=== PATIENT | female | born 1995 | race Caucasian/White ===

== ENCOUNTER → 2016-08-29 | Outpatient (CLI) | payer OTHER ==
[~2016-08-29] MED LIST: ACET-1256 PO; ATV/1 PO; CHOL200010 PO; CPXI SQ; ERGO500037 PO; ONDA4TAB46 PO; PRENTAB26 PO
[2016-09-01 11:06] LABS: CHLAMYDIA TRACH RNA*** NOT DETECTED (NOT DETECTED); GC (NEIS GONORRHOEAE)RNA** NOT DETECTED (NOT DETECTED); HERPES SIMPLEX CULT SOURCE GENITAL-VAGINAL; HERPES SIMPLEX VIRUS CULT NOT ISOLATED (NOT ISOLATED)
== END | disposition home or self-care (01) ==
LOC: C.LABSPEC 17:45
PROVIDERS: ATTEND Physician Assistant
DX: L29.8 Other pruritus (principal); N89.8 Other specified noninflammatory disorders of vagina; Z11.3 Encounter for screening for infections with a predominantly sexual mode of transmission; N94.9 Unspecified condition associated with female genital organs and menstrual cycle

== ENCOUNTER 2016-10-10 02:37 | Emergency (ER) | payer OTHER ==
[~2016-10-10] VITALS: Ht 160 cm; Wt 102.5 kg
[~2016-10-10 02:37] MED LIST changes: -ATV/1 PO; -CHOL200010 PO; -CPXI SQ; -ERGO500037 PO; -ONDA4TAB46 PO; -PRENTAB26 PO
[2016-10-10 02:40] VITALS: TEMP 36.6; Ht 160 cm; Wt 102.5 kg
[2016-10-10] MEDS ORDERED: SODIUM CHLORIDE 0.9% 1000ML 1,000 ML IV ONE (03:15)
[2016-10-10 03:25] LABS: BASO % 0.3 %; BASO ABS # 0.02 K/uL (0-0.2); COMPLETE YES; EOS % 1.5 %; HEMATOCRIT 39.7 % (37-47); IG% 0.3 %; LYMPH % 34.2 %; LYMPH ABS # 2.71 K/uL (1.2-3.4); MEAN CELL VOLUME 87.3 fL (80-100); MEAN CORPUSCULAR HEMOGLOBIN 29.9 pg (25-34); MEAN CORPUSCULAR HGB CONC 34.3 g/dl (32-36); MEAN PLATELET VOLUME 8.4 fL (7.4-10.4); MONO % 8.1 %; NEUT % 55.6 %; PLATELET COUNT 332 K/uL (130-400); RED BLOOD COUNT 4.55 M/uL (4.2-5.4); WHITE BLOOD COUNT 7.93 K/uL (4.8-10.8)
[2016-10-10 03:35] LABS: URINE APPEARANCE CLEAR (CLEAR); URINE BILIRUBIN NEG (NEG); URINE COLOR YELLOW; URINE NITRITE NEG (NEG); URINE SPECIFIC GRAVITY 1.017 (1.000-1.030); UROBILINOGEN NEG (NEG); ZZUR CULT IF INDIC CLEAN CATCH NO
[2016-10-10 03:44] LABS: BUN/CREATININE RATIO 12.1 (10-20); CALCIUM 9.3 mg/dl (8.5-10.1); CREATININE 0.76 mg/dl (0.60-1.20); POTASSIUM 3.5 mmol/L (3.5-5.1)
[2016-10-10 03:46] LABS: ALB/GLOB RATIO 1.1 (0.9-2)
[2016-10-10 03:59] LABS: MANUAL MICROSCOPIC REQUIRED? NO; REVIEW REQ? NO
[2016-10-10] MEDS ORDERED: METHYLPREDNISOLONE 1000 MG/16 ML IV STA (04:02)
[2016-10-10] MEDS ORDERED: ERGO500037 PO (04:21)
[2016-10-10] MEDS ORDERED: CPXI SQ (04:22)
[2016-10-10] MEDS ORDERED: methylPREDNISolone 1000 MG in DEXTROSE 5% 250 ML IV ONE (04:30)
[2016-10-10] MEDS ORDERED: ATV/1 PO (05:07)
[2016-10-10 05:35] VITALS: BP 131/75; PULSE 64; O2SAT 99
--- NOTE | 2016-10-10 06:22 | EMERGENCY ROOM VISIT NOTE ---
History First contact with patient: 02:46 Chief Complaint: NEURO SYMPTOMS Stated Complaint: L SIDED NUMBNESS,HEADACHE,TONGUE/THROAT NUMBNESS Nursing Triage Summary: Patient has history of MS, c/o numbness in left arm, breast, jaw and leg History of Present Illness The patient is a 21 year old female who presents to the Emergency Room with complaints of numbness to essentially the entirety of the left side of her body. The patient states that her symptoms have been slowly progressing over the past day. She has a history of multiple sclerosis that was diagnosed 5 months ago. She does follow with [facility] neurology for this. She states that she has had a progressive worsening of left arm, face, chest, back, and leg numbness. He did not have injury or trauma. She is without fever or other infectious symptoms. The patient denies chance of . 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 She states that as she was washing her hands after seeing the patient she had a notable difference in temperature sensation between her hands. The patient is on Copaxone 3 times weekly. She has required 1 previous round of steroids of this year for a flare of her MS. Review of Systems More than 10 systems were reviewed and otherwise negative with the exception of history of present illness. Past Medical/Surgical History Medical Problems: (1) deviated ulna reduction 2006 (2) Tonsillectomy and adenoidectomy (3) [place] Teeth Removal Family History No significant family history Social History Smoking Status: Never Smoker Alcohol Use: none Marital Status: single Housing Status: lives with family Occupation Status: unemployed Current/Historical Medications Scheduled Ergocalciferol (Vitamin D 18649 Unit), 50,000 UNIT PO WK Glatiramer Acetate (Copaxone), 40 MG SQ 3XWK Scheduled PRN Acetaminophen (Tylenol), 2 TABS PO DIRECTED PRN for Pain Lorazepam (Ativan), 1-2 TAB PO Q6H PRN for Sleep Allergies Coded Allergies: Kiwi (Verified Allergy, Intermediate, TONGUE AND THROAT SWELL, 10/10/16) Physical Exam Vital Signs Date Time Temp Pulse Resp B/P (MAP) Pulse Ox O2 Delivery O2 Flow Rate FiO2 10/10/16 05:35 64 16 131/75 99 10/10/16 03:58 71 16 126/80 100 Room Air 10/10/16 02:40 36.6 79 20 155/91 100 Room Air Pain Rating (0-10): 0 Physical Exam VITALS: Vitals are noted on the nurse's note and reviewed by myself. Vital signs stable. GENERAL: Well-developed, well-nourished, white female, who is in no acute distress and resting comfortably. Patient is cooperative with the examination. HEAD: Normocephalic atraumatic. HEART: Regular rate and rhythm without murmurs gallops or rubs. LUNGS: Clear to auscultation bilaterally without wheezes, rales or rhonchi. No retractions or accessory muscle use. ABDOMEN: Positive normal bowel sounds x 4. Soft, nontender, without masses or organomegaly. No guarding or rebound tenderness. MUSCULOSKELETAL: No muscle atrophy, erythema, or edema noted. Full range of motion without joint tenderness in all extremities. Strength 5/5 throughout. NEURO: Patient was alert and oriented to person place and time. No obvious neurologic deficit. Stroke scale 0. Medical Decision & Procedures Laboratory Results 10/10/16 03:10 Red Blood Count 4.55, Mean Corpuscular Volume 87.3, Mean Corpuscular Hemoglobin 29.9, Mean Corpuscular Hemoglobin Concent 34.3, Mean Platelet Volume 8.4, Neutrophils (%) (Auto) 55.6, Lymphocytes (%) (Auto) 34.2, Monocytes (%) (Auto) 8.1, Eosinophils (%) (Auto) 1.5, Basophils (%) (Auto) 0.3, Neutrophils # (Auto) 4.42, Lymphocytes # (Auto) 2.71, Monocytes # (Auto) 0.64, Eosinophils # (Auto) 0.12, Basophils # (Auto) 0.02 10/10/16 03:10 Test 10/10/16 03:10 10/10/16 03:25 White Blood Count 7.93 K/uL (4.8-10.8) Red Blood Count 4.55 M/uL (4.2-5.4) Hemoglobin 13.6 g/dL (12.0-16.0) Hematocrit 39.7 % (37-47) Mean Corpuscular Volume 87.3 fL (80-100) Mean Corpuscular Hemoglobin 29.9 pg (25-34) Mean Corpuscular Hemoglobin Concent 34.3 g/dl (32-36) Platelet Count 332 K/uL (130-400) Mean Platelet Volume 8.4 fL (7.4-10.4) Neutrophils (%) (Auto) 55.6 % Lymphocytes (%) (Auto) 34.2 % Monocytes (%) (Auto) 8.1 % Eosinophils (%) (Auto) 1.5 % Basophils (%) (Auto) 0.3 % Neutrophils # (Auto) 4.42 K/uL (1.4-6.5) Lymphocytes # (Auto) 2.71 K/uL (1.2-3.4) Monocytes # (Auto) 0.64 K/uL (0.11-0.59) Eosinophils # (Auto) 0.12 K/uL (0-0.5) Basophils # (Auto) 0.02 K/uL (0-0.2) RDW Standard Deviation 39.2 fL (36.4-46.3) RDW Coefficient of Variation 12.3 % (11.5-14.5) Immature Granulocyte % (Auto) 0.3 % Immature Granulocyte # (Auto) 0.02 K/uL (0.00-0.02) Anion Gap 6.0 mmol/L (3-11) Est Creatinine Clear Calc Drug Dose 131.6 ml/min Estimated GFR () 128.1 Estimated GFR (Non- 110.6 BUN/Creatinine Ratio 12.1 (10-20) Calcium Level 9.3 mg/dl (8.5-10.1) Total Bilirubin 0.4 mg/dl (0.2-1) Aspartate Amino Transf (AST/SGOT) 19 U/L (15-37) Alanine Aminotransferase (ALT/SGPT) 41 U/L (12-78) Alkaline Phosphatase 70 U/L (45-117) Total Protein 7.4 gm/dl (6.4-8.2) Albumin 3.9 gm/dl (3.4-5.0) Globulin 3.5 gm/dl (2.5-4.0) Albumin/Globulin Ratio 1.1 (0.9-2) Urine Color YELLOW Urine Appearance CLEAR (CLEAR) Urine pH 5.0 (4.5-7.5) Urine Specific [place] 1.017 (1.000-1.030) Urine Protein NEG (NEG) Urine Glucose (UA) NEG (NEG) Urine Ketones NEG (NEG) Urine Occult Blood 1+ (NEG) Urine Nitrite NEG (NEG) Urine Bilirubin NEG (NEG) Urine Urobilinogen NEG (NEG) Urine Leukocyte Esterase NEG (NEG) Urine WBC (Auto) 1-5 /hpf (0-5) Urine RBC (Auto) 0-4 /hpf (0-4) Urine Hyaline Casts (Auto) 0 /lpf (0-5) Urine Epithelial Cells (Auto) 10-20 /lpf (0-5) Urine Bacteria (Auto) NEG (NEG) Urine Test NEG (NEG) Medications Administered Medications (Trade) Dose Ordered Sig/Silvestre Route Start Time Stop Time Status Last Admin Dose Admin Sodium Chloride 1,000 ml @ 999 mls/hr Q1H1M ONCE IV 10/10/16 03:15 10/10/16 04:15 DC 10/10/16 03:23 999 MLS/HR Methylprednisolone Sodium Succinate 1000 mg/Dextrose 266 ml @ 266 mls/hr NOW ONCE IV 10/10/16 04:30 10/10/16 05:29 DC 10/10/16 04:27 266 MLS/HR ED Course Physical exam and history were performed. Nursing notes and EMR were reviewed. Patient appears to have a history of MS and is describing symptoms most consistent with an MS flare. The patient does not appear toxic on examination, and is without reproducible weakness. I discussed the patient's case and presentation with Dr. Navarrete of [facility] neurology. Recommendation was for 1 g IV Solu-Medrol daily for the next 4 days. Patient received her first dose of the medication here in the department. Logistically the patient will need 3 additional doses of the Solu-Medrol. Tomorrow is October 11 hol, and limited services are available through the patient's PCP and [facility]. I discussed this with the on-call [facility] hospitalist , Dr Lacy, who recommended the patient return to the emergency department tomorrow on October 11 for her second dose of Solu-Medrol. Dr Lacy will contact the patient's primary care physician to arrange further appropriate outpatient administration of the Solu-Medrol. I discussed this at length with the patient, who was quite pleased with this plan. We did obtain basic blood work which is as above and without significant findings. The patient voiced concern of side effects of Solu-Medrol, as she states that she is essentially unable to sleep while on the medication. She has attempted Benadryl and Tylenol PM in the past with no significant improvement. Because of her symptoms I will provide her a very short course of Ativan to assist with rest. The patient will be given a note for several days off work. I did direct her back to the emergency department if she has any new or worsening symptoms. She is to contact neurology for an appointment later this week. The patient was pleased with this plan of voiced understanding. She rated her discomfort a 1/10 at the time of departure. The chart was completed utilizing [employer] Speech Voice Recognition Software. Grammatical errors, random word insertions, pronoun errors, and incomplete sentences are an occasional consequence of this system due to software limitations, ambient noise, and hardware issues. Any formal questions or concerns about the content, text, or information contained within the body of this dictation should be directly addressed to the provider for clarification. . Medical Decision Differential diagnosis: Etiologies such as metabolic, infection, hypo/hyperglycemia, electrolyte abnormalities, cardiac sources, intracerebral event, toxicologic, neurologic, as well as others were entertained. Impression Primary Impression: Exacerbation of multiple sclerosis Departure Information Dispostion Home / Self-Care Condition GOOD Prescriptions Lorazepam (ATIVAN) 1 Mg Tab 1-2 TAB PO Q6H Y for Sleep, #10 TAB Prov: Dhruv Elder PA-C 10/10/16 Referrals Aravind Navarrete M.D. (MEDICINE) Forms HOME CARE DOCUMENTATION FORM, Work Instructions, Additional Instructions: Patient seen and evaluated in the emergency department medical care. Return to work on 10/15/2016. Please excuse. IMPORTANT VISIT INFORMATION Patient Instructions My [facility] Additional Instructions You were seen and evaluated today on an emergency basis only. This is not a substitute for, or an effort to provide, complete comprehensive medical care. It is not possible to recognize and treat all injuries or illnesses in a single emergency department visit. For this reason it is recommended that you followup in the emergency room around 8 AM on 10/11/2016. You will need an additional 1000 mg IV Solu-Medrol. We have discussed the case with [facility] neurology as well as the [facility] hospitalist. Recommendation is for 4 total days of IV Solu-Medrol. [facility] should be in contact with you regarding your third and fourth doses of Solu- Medrol. You may use Ativan 1-2 mg by mouth at night to help with sleep well on the Solu- Medrol. This is a controlled substance and will make you tired. Do not drink or drive while on Ativan. You are welcome to return to the emergency department anytime with new, worsening, or concerning symptoms. Work Instructions Additional Work Instructions: Patient seen and evaluated in the emergency department medical care. Return to work on 10/15/2016. Please excuse.
--- NOTE | 2016-10-11 01:56 | Progress Note ---
Internal Med Progress Note Date of Service: Oct 11, 2016. Provider Documentation: Last 2 days of Solu-Medrol scheduled at [facility] on October 12 and October 13 at 1 PM. Patient notified of schedule over the phone.
== END 2016-10-10 05:35 | disposition home or self-care (01) ==
LOC: C.EDB 02:38
DX: G35 Multiple sclerosis (principal)

== ENCOUNTER 2016-10-11 08:02 | Emergency (ER) | payer OTHER ==
[~2016-10-11] VITALS: Ht 160 cm; Wt 102.5 kg
[~2016-10-11 08:02] MED LIST changes: +ATV/1 PO; +CPXI SQ; +ERGO500037 PO
[2016-10-11 08:10] VITALS: TEMP 36.9; Ht 160 cm; Wt 102.5 kg
[2016-10-11] MEDS ORDERED: METHYLPREDNISOLONE 1000 MG/16 ML IV STA (08:26)
[2016-10-11] MEDS ORDERED: methylPREDNISolone 1000 MG in DEXTROSE 5% 250 ML IV ONE (08:45)
[2016-10-11] MEDS ORDERED: ACETAMINOPHEN 500 MG TAB PO STA (09:02)
--- NOTE | 2016-10-11 09:10 | EMERGENCY ROOM VISIT NOTE ---
ED Visit Note First contact with patient: 08:19 CHIEF COMPLAINT: MS flare, repeat dose of IV Solu-Medrol HPI: Patient is a 21-year-old white female with past medical history significant for MS who returns to the emergency department as advised for her second dose of IV Solu-Medrol. Patient was seen and evaluated here yesterday morning for an exacerbation of her MS symptoms which included headache, numbness and a sensation of generalized "heaviness." She received IV Solu- Medrol here in the emergency department, and due to the October holiday, was instructed to return here today for her second dose, as an outpatient facility was not available. Patient reports that her third and fourth doses are scheduled with [facility], and she received confirmation of this from her neurologist yesterday. Patient reports that the "heaviness" is better, still has the same headache and numbness. She otherwise has no significant worsening of her symptoms. She has no questions or concerns. She tolerated the Solu- Medrol yesterday without difficulty. REVIEW OF SYSTEMS: Review of systems as per HPI. All other systems reviewed were negative. At least 6 systems reviewed. PMH: Electronic medical records are reviewed and summarized as above/below. See Problem List. SOCIAL HISTORY: Patient lives at home with her boyfriend. 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 Denies tobacco or alcohol use. PHYSICAL EXAM: Vital Signs: Reviewed Nurse's notes. CONSTITUTIONAL: Patient is a well-appearing 21-year-old white female who is awake and alert and in no acute distress. HEART: Regular rate and rhythm. LUNGS: Clear to auscultation. NEURO: Alert and oriented 4. Normal gait. EMERGENCY DEPARTMENT COURSE: The patient was seen and evaluated as above. Her old records are reviewed. IV lock was initiated and patient was given Solu- Medrol 1000 mg IV. She requested Tylenol for her headache and was given 1 g orally. She had no reaction to the IV medication, and was discharged home in good condition to follow up with [facility] for the remainder of her injections and her neurologist as she has scheduled. Problem List Medical Problems: (1) Exacerbation of multiple sclerosis Status: Resolved (2) Multiple Sclerosis Status: Chronic Surgical Problems: (1) deviated ulna reduction 2006 Status: Resolved (2) Tonsillectomy and adenoidectomy Status: Resolved (3) [place] Teeth Removal Status: Resolved Current/Historical Medications Scheduled Ergocalciferol (Vitamin D 67540 Unit), 50,000 UNIT PO WK Glatiramer Acetate (Copaxone), 40 MG SQ 3XWK Scheduled PRN Acetaminophen (Tylenol), 2 TABS PO DIRECTED PRN for Pain Lorazepam (Ativan), 1-2 TAB PO Q6H PRN for Sleep Allergies Coded Allergies: Kiwi (Verified Allergy, Intermediate, TONGUE AND THROAT SWELL, 10/11/16) Vital Signs Date Time Temp Pulse Resp B/P (MAP) Pulse Ox O2 Delivery O2 Flow Rate FiO2 10/11/16 10:00 1/ 10/11/16 09:53 61 18 142/82 99 Room Air 10/11/16 08:10 36.9 71 16 133/79 98 Room Air Medications Administered Medications (Trade) Dose Ordered Sig/Silvestre Route Start Time Stop Time Status Last Admin Dose Admin Methylprednisolone Sodium Succinate 1000 mg/Dextrose 266 ml @ 266 mls/hr NOW ONCE IV 10/11/16 08:45 10/11/16 09:44 DC 10/11/16 08:59 266 MLS/HR Acetaminophen (Tylenol Tab) 1,000 mg NOW STAT PO 10/11/16 09:02 10/11/16 09:03 DC 10/11/16 09:06 1,000 MG Departure Information Impression Primary Impression: Medication administered Additional Impression: Multiple sclerosis exacerbation Referrals No Doctor, Assigned (PCP) Patient Instructions My [facility] Additional Instructions Have the remainder of your IV infusions performed as scheduled. Follow-up with your neurologist as you have arranged. Return to the emergency department as needed. Problem Qualifiers
[2016-10-11 09:53] VITALS: PULSE 61; O2SAT 99
== END 2016-10-11 10:01 | disposition home or self-care (01) ==
LOC: C.EDB 08:03
DX: G35 Multiple sclerosis (principal)

== ENCOUNTER 2017-01-05 03:13 | Emergency (ER) | payer OTHER ==
[~2017-01-05] VITALS: Ht 160 cm; Wt 98.0 kg
[~2017-01-05 03:13] MED LIST changes: -ATV/1 PO
[2017-01-05 03:16] VITALS: BP 124/72; TEMP 36.9; Ht 160 cm; Wt 98.0 kg
[2017-01-05] MEDS ORDERED: ONDA4TAB46 PO (04:24)
[2017-01-05] MEDS ORDERED: CHOL200010 PO (04:24)
[2017-01-05] MEDS ORDERED: PRENTAB26 PO (04:24)
[2017-01-05 05:09] VITALS: PULSE 72; O2SAT 97
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
== END 2017-01-05 05:12 | disposition home or self-care (01) ==
LOC: C.EDB 03:13
DX: S39.91XA Unspecified injury of abdomen, initial encounter (principal); R10.9 Unspecified abdominal pain; Z3A.12 12 weeks gestation of pregnancy; Y04.2XXA Assault by strike against or bumped into by another person, initial encounter; Y92.230 Patient room in hospital as the place of occurrence of the external cause; Y99.0 Civilian activity done for income or pay; G35 Multiple sclerosis

== ENCOUNTER 2017-03-27 10:14 | Outpatient (CLI) | payer OTHER ==
[~2017-03-27 10:14] MED LIST changes: +CHOL200010 PO; -CPXI SQ; -ERGO500037 PO; +ONDA4TAB46 PO; +PRENTAB26 PO
[2017-03-27] MEDS ORDERED: ONDANSETRON 4 MG TAB PO PRN (11:00)
[2017-03-27] MEDS ORDERED: ACETAMINOPHEN 325 MG TAB PO PRN (11:00)
[2017-03-27 11:41] LABS: URINE APPEARANCE CLEAR (CLEAR); URINE BILIRUBIN NEG (NEG); URINE COLOR YELLOW; URINE EPITHELIAL CELL AUTO >30 /lpf (0-5); URINE NITRITE NEG (NEG); URINE PH 7.5 (4.5-7.5); URINE SPECIFIC GRAVITY 1.009 (1.000-1.030); UROBILINOGEN NEG (NEG); ZZUR CULT IF INDIC CLEAN CATCH YES
[2017-03-27 11:43] LABS: MANUAL MICROSCOPIC REQUIRED? NO; REVIEW REQ? NO
[2017-03-27 11:52] LABS: BASO % 0.2 %; BASO ABS # 0.03 K/uL (0-0.2); COMPLETE YES; EOS % 0.8 %; HEMATOCRIT 34.2 % (37-47); IG% 1.6 %; LYMPH % 20.9 %; LYMPH ABS # 2.79 K/uL (1.2-3.4); MEAN CELL VOLUME 90.2 fL (80-100); MEAN CORPUSCULAR HEMOGLOBIN 31.4 pg (25-34); MEAN CORPUSCULAR HGB CONC 34.8 g/dl (32-36); MEAN PLATELET VOLUME 8.4 fL (7.4-10.4); MONO % 8.1 %; NEUT % 68.4 %; PLATELET COUNT 285 K/uL (130-400); RED BLOOD COUNT 3.79 M/uL (4.2-5.4); WHITE BLOOD COUNT 13.37 K/uL (4.8-10.8)
--- NOTE | 2017-03-27 12:44 | DIAGNOSTIC IMAGING REPORT ---
RENAL ULTRASOUND HISTORY: RLQ and flank pain COMPARISON: None. FINDINGS: Right kidney: 11.2 cm. No hydronephrosis. Normal corticomedullary differentiation and cortical thickness. Left kidney: 11.9 cm. No hydronephrosis. Normal corticomedullary differentiation and cortical thickness. Bladder: No bladder wall thickening. The bilateral ureteral jets were identified. IMPRESSION: Normal renal ultrasound. Electronically signed by: Mendez Galvez M.D. 03/27/2017 12:42 PM Dictated Date/Time: 03/27/2017 12:41 PM
--- NOTE | 2017-03-27 13:16 | DIAGNOSTIC IMAGING REPORT ---
APPENDIX ULTRASOUND CLINICAL HISTORY: 21 years-old Female presenting with RLQ pain, 23 weeks . TECHNIQUE: Real-time grayscale and limited color Doppler ultrasound imaging of the right lower quadrant was performed to evaluate the appendix. COMPARISON: CT from 2007. FINDINGS: Appendix not visualized. No free fluid or hyperechogenic fat to suggest secondary signs of inflammation. A grossly normal-appearing fetus is noted. The heart rate 1 48 bpm. Posterior placenta 4.8 cm from the cervix. IMPRESSION: Appendix not visualized, although no secondary signs of inflammation. This does not exclude the diagnosis of appendicitis. Electronically signed by: Evans Gudino M.D. 03/27/2017 1:15 PM Dictated Date/Time: 03/27/2017 1:13 PM
--- NOTE | 2017-03-27 14:23 | Discharge Instructions ---
Discharge Instructions Date of Service Mar 27, 2017. Admission Reason for Admission: Right Lower Abdominal Pain Discharge Discharge Diagnosis / Problem: Round lig pain Discharge Goals Goal(s): Continuing OB care Activity Recommendations Activity Limitations: as noted below ACTIVITY RECOMMENDATIONS: See Labor Sheet. SPECIAL CARE INSTRUCTIONS: Call Doctor if: * Regular contractions every 5 minutes or greater than 4 contractions in one hour. * Bleeding * Water breaks or is leaking * Decreased movement * Fever >100.4 degrees F * Pain not relieved by routine measures or pain medication ordered. FOLLOW UP VISIT: Return to Labor and Delivery on for /call for appointment time . Follow-up Visit with: When: . Current Hospital Diet Patient's current hospital diet: Discharge Diet Recommended Diet: Regular Diet Pending Studies Studies pending at discharge: yes (urine culture) List of pending studies: Urine cx Medical Emergencies . Who to Call and When: Medical Emergencies: If at any time you feel your situation is an emergency, please call 911 immediately. . Non-Emergent Contact Non-Emergency issues call your: Specialist Call Non-Emergent contact if: temperature is above 100.5, your pain is not controlled . . "Provider Documentation" section prepared by Dima Renae. . VTE Core Measure Inpt VTE Proph given/why not?: Treatment not indicated
== END 2017-03-27 14:20 | disposition home or self-care (01) ==
LOC: C.OPB 10:14 → C.LD 10:14 → C.OPB 14:20
PROVIDERS: ATTEND Obstetrics & Gynecology
DX: O26.892 Other specified pregnancy related conditions, second trimester (principal); R10.2 Pelvic and perineal pain; O99.212 Obesity complicating pregnancy, second trimester; E66.9 Obesity, unspecified; R31.9 Hematuria, unspecified; Z3A.23 23 weeks gestation of pregnancy

== ENCOUNTER 2017-05-22 21:21 | Observation (INO) | payer OTHER ==
[~2017-05-22] VITALS: Ht 160 cm; Wt 96.0 kg
[2017-05-22] MEDS ORDERED: LACTATED RINGER'S 1000ML 500 ML IV ONE (22:10)
[2017-05-22] MEDS ORDERED: BETAMETH SOD PHOS/ACETATE IA 6 MG/ML IM STA (22:14)
[2017-05-22] MEDS ORDERED: ONDANSETRON INJ 2 MG/ML 2 ML VIAL IV PRN (22:15)
[2017-05-22 22:37] LABS: BASO % 0.1 %; BASO ABS # 0.01 K/uL (0-0.2); EOS % 0.3 %; EOS ABS # 0.04 K/uL (0-0.5); HEMATOCRIT 36.8 % (37-47); HEMOGLOBIN 12.7 g/dL (12.0-16.0); IG# 0.09 K/uL (0.00-0.02); LYMPH % 23.6 %; LYMPH ABS # 2.81 K/uL (1.2-3.4); MEAN CELL VOLUME 89.3 fL (80-100); MEAN CORPUSCULAR HEMOGLOBIN 30.8 pg (25-34); MEAN CORPUSCULAR HGB CONC 34.5 g/dl (32-36); MEAN PLATELET VOLUME 8.3 fL (7.4-10.4); MONO % 10.1 %; NEUT % 65.1 %; NEUT ABS # 7.74 K/uL (1.4-6.5); PLATELET COUNT 301 K/uL (130-400); RED CELL DISTRIBUTION WIDTH SD 42.1 fL (36.4-46.3); WHITE BLOOD COUNT 11.89 K/uL (4.8-10.8)
[2017-05-22] MEDS: NIFEdipine 10 MG CAP PO SCH ×2 (22:41→23:43)
[2017-05-22] MEDS ORDERED: LACTATED RINGER'S 1000ML 1,000 ML IV SCH (23:00)
[2017-05-22] MEDS ORDERED: NIFEdipine 10 MG CAP PO STA (23:38)
[2017-05-23 00:06] LABS: INR 0.9 (0.9-1.1); PTT PATIENT 24.3 SECONDS (21.0-31.0)
[2017-05-23] MEDS ORDERED: ACETAMINOPHEN 325 MG TAB PO STA (00:20)
[2017-05-23] MEDS ORDERED: MAGNESIUM SULFATE / WTR 1,000 ML IV ONE (00:27)
[2017-05-23] MEDS ORDERED: LACTATED RINGER'S 1000ML 1,000 ML IV SCH (00:45)
[2017-05-23] MEDS ORDERED: MAGNESIUM SULFATE 4GM / WTR 100ML IV ONE (00:45)
[2017-05-23] MEDS ORDERED: MAGNESIUM SULFATE / WTR 1,000 ML IV SCH (01:15)
[2017-05-23 02:20] VITALS: Ht 160 cm; Wt 96.0 kg
--- NOTE | 2017-05-23 08:35 | DIAGNOSTIC IMAGING REPORT ---
LIMITED (US) CLINICAL HISTORY: S/P FALL, assess for placental injury COMPARISON STUDY: None. FINDINGS: Transabdominal scanning of the fetus was performed. A 4. Anatomic survey was not performed. heart rate is 148 bpm. Normal amniotic fluid index of 10.7 cm. The femur length is 5.9 cm consistent with a 30 week and 5 day intrauterine gestation. The fetus is in a cephalic presentation. There is a posterior placenta which appears to be within normal limits. No evidence for subchorionic hematoma. IMPRESSION: 1. Single viable intrauterine measuring 30 weeks and 5 days with a heart rate of 148 bpm. 2. Normal posterior placenta. 3. Cervix was not visualized due to shadowing from the head. Electronically signed by: Mendez Galvez M.D. 05/23/2017 8:33 AM Dictated Date/Time: 05/23/2017 8:31 AM
== END 2017-05-23 01:54 | disposition short-term general hospital (02) ==
LOC: C.LD 21:21 → C.OPB 21:21 → C.LD 22:14
PROVIDERS: ADMIT Obstetrics & Gynecology; ATTEND Obstetrics & Gynecology
DX: O60.03 Preterm labor without delivery, third trimester (principal); Z3A.31 31 weeks gestation of pregnancy; O99.353 Diseases of the nervous system complicating pregnancy, third trimester; G35 Multiple sclerosis; W00.9XXA Unspecified fall due to ice and snow, initial encounter; O99.213 Obesity complicating pregnancy, third trimester; E66.9 Obesity, unspecified

== ENCOUNTER 2017-06-10 18:07 | Outpatient (CLI) | payer OTHER ==
[~2017-06-10] VITALS: Ht 160 cm; Wt 95.5 kg
[2017-06-10] MEDS ORDERED: MULT1CHW37 PO (18:52)
[2017-06-10 19:02] VITALS: Ht 160 cm; Wt 95.5 kg
--- NOTE | 2017-06-10 19:51 | Discharge Instructions ---
Discharge Instructions Date of Service Jun 10, 2017. Admission Reason for Admission: R/O Ruptured Membranes Discharge Discharge Diagnosis / Problem: labor Discharge Goals Goal(s): Continuing OB care Activity Recommendations Activity Limitations: as noted below ACTIVITY RECOMMENDATIONS: See Labor Sheet. SPECIAL CARE INSTRUCTIONS: Call Doctor if: * Regular contractions every 5 minutes or greater than contractions in one hour. * Bleeding * Water breaks or is leaking * Decreased movement * Fever >100.4 degrees F * Pain not relieved by routine measures or pain medication ordered. FOLLOW UP VISIT: Return to Labor and Delivery on for /call for appointment time . Follow-up Visit with: When: . Current Hospital Diet Patient's current hospital diet: Discharge Diet Recommended Diet: Regular Diet Pending Studies Studies pending at discharge: no Medical Emergencies . Who to Call and When: Medical Emergencies: If at any time you feel your situation is an emergency, please call 911 immediately. . Non-Emergent Contact Non-Emergency issues call your: Specialist . . "Provider Documentation" section prepared by Jhony Cisneros. .
--- NOTE | 2017-06-10 19:53 | Progress Note ---
Progress Note Date of Service Jun 10, 2017. Progress Note Pt is 34+ weeks gestation seen and evaluated for possiblr PTL and R/O SROM Amniosure Negative Irreg ctx. 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
== END 2017-06-10 20:00 | disposition home or self-care (01) ==
LOC: C.OPB 18:07 → C.LD 18:07 → C.OPB 20:00
PROVIDERS: ATTEND Obstetrics & Gynecology
DX: O60.03 Preterm labor without delivery, third trimester (principal); Z3A.34 34 weeks gestation of pregnancy

== ENCOUNTER 2017-06-16 17:59 | Emergency (ER) | payer OTHER ==
[~2017-06-16] VITALS: Ht 160 cm; Wt 98.3 kg
[~2017-06-16 17:59] MED LIST changes: -ACET-1256 PO; +MULT1CHW37 PO; -ONDA4TAB46 PO; -PRENTAB26 PO
[2017-06-16 18:08] VITALS: Ht 160 cm; Wt 98.3 kg
--- NOTE | 2017-06-16 18:41 | EMERGENCY ROOM VISIT NOTE ---
History Report prepared by Queta: Ayush Cardozo Under the Supervision of: Dr. Lena Umana D.O. First contact with patient: 18:14 Chief Complaint: NEURO SYMPTOMS Stated Complaint: LT FACIAL NUMBNESS, LIGHT HEADED, RT ARM HEAVINESS Nursing Triage Summary: Left facial numbness, lightheaded, right arm numbness, & loss of coordination x1 month. Symptoms are intermittent, sx were happening once or twice a day and pt attributed it to , today worsened, sx happened 12x today. Appt on Monday with Dr. Dumas, neurologist to establish care in [facility], sees [facility] but has not been able to get in to make appt. OB sent pt here for eval. Hx MS 35 weeks preg. History of Present Illness The patient is a 22 year old female who presents to the Emergency Room with complaints of intermittent, worsening left sided facial numbness beginning one month ago. The patient is 35 weeks . This is her first . She has not experienced any complications with her other than a short spell of pre-term labor which occurred following a fall on May 22. The patient notes that she was diagnosed with multiple sclerosis last May. The patient states that her multiple sclerosis has been in remission during her . The patient reports that the last exacerbation of her multiple sclerosis symptoms occurred in October when she experienced numbness in her abdomen which extended across her chest, and the left side of her face. The patient notes that her symptoms lasted for 3 days without resolve during this exacerbation, but did not leave any residual numbness afterwards. In contrast, she reports that each episode of her current facial numbness lasts for 45 seconds to a minute, after which her symptoms resolve. The patient notes that each of her episodes generally begins with a cold sensation in her lips, however , for the past week and a half she states that her symptoms have spread to effect the region below her left eye as well as her left cheek. The patient states that each of her episodes are accompanied by feelings of lightheadedness , dizziness, and the loss of the ability to properly speak. 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 In addition to facial numbness and weakness, the patient reports intermittent loss of right arm coordination. The patient's boyfriend does not feel that the patient becomes flushed during her episodes of weakness or loss of coordination. The patient feels that being in warm environments trigger her symptoms. The patient reports that she experienced nausea, diarrhea, and hot flashes last night at 0000, however, she states that she has not experienced any of these symptoms since 0900 this morning. She denies any fevers or chills. The patient states that she has an appointment with neurology next Monday to evaluate her present symptoms. Source of History: patient, spouse/significant other Onset: 1 month ago Position: head (Face ), arm (right) Quality: numbness Timing: intermittent, worsening Modifying Factors (Worsening): other (Heat ) Associated Symptoms: + nausea, + diarrhea, No fevers, No chills Note: Associated Symptoms: Lightheadedness, Dizziness, Difficulty speaking, Loss of coordination in right arm, Hot flashes Denies: Flushing during episodes. Review of Systems See HPI for pertinent positives & negatives. A total of 10 systems reviewed and were otherwise negative. Past Medical & Surgical Medical Problems: (1) Back pain affecting in second trimester (2) Exacerbation of multiple sclerosis (3) Multiple Sclerosis (4) labor in third trimester (5) RLQ abdominal pain (6) Status post fall (7) Threatened premature labor affecting , less than 37 weeks in third trimester, antepartum Surgical Problems: (1) deviated ulna reduction 2006 (2) Tonsillectomy and adenoidectomy (3) Orick Teeth Removal Family History No significant family history Social History Smoking Status: Never Smoker Alcohol Use: none Marital Status: single Housing Status: lives with family Occupation Status: unemployed Current/Historical Medications Scheduled Cholecalciferol (Vitamin D), 2,000 INTER.UNIT PO QAM Multivit/Min/Iron/Fol Ac/Pren ( Vitamin), 1 TAB PO DAILY Scheduled PRN Docusate Sodium (Docusate Sodium), 1 CAP PO BID PRN for Constipation Valacyclovir Hcl (Valtrex), 2,000 MG PO BID PRN for COLD SORES Allergies Coded Allergies: Kiwi (Verified Allergy, Intermediate, TONGUE AND THROAT SWELL, 06/10/17) Uncoded Allergies: PET DANDER (Allergy, Intermediate, SHORTNESS OF BREATH, 06/10/17) Physical Exam Vital Signs Date Time Temp Pulse Resp B/P (MAP) Pulse Ox O2 Delivery O2 Flow Rate FiO2 06/16/17 22:42 36.8 76 18 123/88 99 06/16/17 22:06 76 123/88 99 Room Air 06/16/17 19:56 75 133/70 99 Room Air 06/16/17 18:08 36.8 84 18 137/85 99 Room Air Physical Exam GENERAL: alert, well appearing, well nourished, no distress, non-toxic EYE EXAM: normal conjunctiva, PERRL and EOM's grossly intact OROPHARYNX: no exudate, no erythema, lips, buccal mucosa, and tongue normal and mucous membranes are moist NECK: supple, no nuchal rigidity, no adenopathy, non-tender LUNGS: Clear to auscultation. Normal chest wall mechanics HEART: no murmurs, S1 normal and S2 normal ABDOMEN: abdomen soft, non-tender, normo-active bowel sounds, no masses, no rebound or guarding. Obviously gravid. Fundus palpable just below costal margins. movement palpable. BACK: Back is symmetrical on inspection and there is no deformity, no midline tenderness, no CVA tenderness. SKIN: no rashes and no bruising UPPER EXTREMITIES: upper extremities are grossly normal. LOWER EXTREMITIES: No pitting edema. NEURO EXAM: During an episode, subjective altered sensation to right arm. Slightly abnormal coordination. No obvious ataxia. Equal strength bilaterally. During an episode, no obvious facial droop or slurred speech. Medical Decision & Procedures Laboratory Results 06/16/17 19:03 Red Blood Count 4.17, Mean Corpuscular Volume 86.8, Mean Corpuscular Hemoglobin 29.7, Mean Corpuscular Hemoglobin Concent 34.3, Mean Platelet Volume 8.5, Neutrophils (%) (Auto) 67.1, Lymphocytes (%) (Auto) 21.0, Monocytes (%) (Auto) 10.7, Eosinophils (%) (Auto) 0.6, Basophils (%) (Auto) 0.2, Neutrophils # (Auto ) 6.09, Lymphocytes # (Auto) 1.91, Monocytes # (Auto) 0.97, Eosinophils # (Auto ) 0.05, Basophils # (Auto) 0.02 06/16/17 19:03 Test 06/16/17 19:03 06/16/17 20:30 White Blood Count 9.08 K/uL (4.8-10.8) Red Blood Count 4.17 M/uL (4.2-5.4) Hemoglobin 12.4 g/dL (12.0-16.0) Hematocrit 36.2 % (37-47) Mean Corpuscular Volume 86.8 fL (80-100) Mean Corpuscular Hemoglobin 29.7 pg (25-34) Mean Corpuscular Hemoglobin Concent 34.3 g/dl (32-36) Platelet Count 261 K/uL (130-400) Mean Platelet Volume 8.5 fL (7.4-10.4) Neutrophils (%) (Auto) 67.1 % Lymphocytes (%) (Auto) 21.0 % Monocytes (%) (Auto) 10.7 % Eosinophils (%) (Auto) 0.6 % Basophils (%) (Auto) 0.2 % Neutrophils # (Auto) 6.09 K/uL (1.4-6.5) Lymphocytes # (Auto) 1.91 K/uL (1.2-3.4) Monocytes # (Auto) 0.97 K/uL (0.11-0.59) Eosinophils # (Auto) 0.05 K/uL (0-0.5) Basophils # (Auto) 0.02 K/uL (0-0.2) RDW Standard Deviation 43.1 fL (36.4-46.3) RDW Coefficient of Variation 13.5 % (11.5-14.5) Immature Granulocyte % (Auto) 0.4 % Immature Granulocyte # (Auto) 0.04 K/uL (0.00-0.02) Anion Gap 7.0 mmol/L (3-11) Est Creatinine Clear Calc Drug Dose 206.1 ml/min Estimated GFR () > 150.0 Estimated GFR (Non- 138.3 BUN/Creatinine Ratio 10.7 (10-20) Calcium Level 9.0 mg/dl (8.5-10.1) Magnesium Level 1.9 mg/dl (1.8-2.4) Total Bilirubin 0.2 mg/dl (0.2-1) Aspartate Amino Transf (AST/SGOT) 13 U/L (15-37) Alanine Aminotransferase (ALT/SGPT) 17 U/L (12-78) Alkaline Phosphatase 129 U/L (45-117) Total Protein 6.6 gm/dl (6.4-8.2) Albumin 2.4 gm/dl (3.4-5.0) Globulin 4.2 gm/dl (2.5-4.0) Albumin/Globulin Ratio 0.6 (0.9-2) Thyroid Stimulating Hormone (TSH) 0.705 uIu/ml (0.300-4.500) Urine Color YELLOW Urine Appearance CLEAR (CLEAR) Urine pH 6.5 (4.5-7.5) Urine Specific [place] 1.003 (1.000-1.030) Urine Protein NEG (NEG) Urine Glucose (UA) NEG (NEG) Urine Ketones NEG (NEG) Urine Occult Blood NEG (NEG) Urine Nitrite NEG (NEG) Urine Bilirubin NEG (NEG) Urine Urobilinogen NEG (NEG) Urine Leukocyte Esterase TRACE (NEG) Urine WBC (Auto) 1-5 /hpf (0-5) Urine RBC (Auto) 0-4 /hpf (0-4) Urine Hyaline Casts (Auto) 0 /lpf (0-5) Urine Epithelial Cells (Auto) >30 /lpf (0-5) Urine Bacteria (Auto) 1+ (NEG) Laboratory results per my review. ED Course 1816: The patient was evaluated in room B08. A complete history and physical exam was performed. 1999: I updated the patient in her room. 2004: I discussed the patient's case with Dr. Root; - [facility]. At this time, she does not advise any further action. She advises for the patient to keep her appointment with Dr. Dumas next Monday. If new or worsening symptoms occur, she is advised to return to the ED. She is debating whether to take image studies of the patient or start IV steroids 2019: I discussed the patient's case with Dr. Cisneros - [facility]. He advises that the patient keep her appointment with neurology next Monday. He does not advise any further treatment at this time. 2027: I re-evaluated the patient. I offered her a strait cath, she denied and would like to try a clean catch again. 2149: I discussed the patient's case with Dr. Mehta - [facility]. He states that the patients order was not processed correctly. 2249: Upon reevaluation, the patient is feeling better. I discussed the findings and the treatment plan with the patient. She verbalizes agreement and understanding. She was discharged home. Medical Decision Patient well-appearing here despite complaints. Patient with prior history of MS which have been improved per usual course during , however now with intermittent symptoms over the course of the last month. Patient concerned due to increased frequency more recently. Patient has an appointment with neurology next Monday. Patient otherwise feels baby moving, and has had no acute changes to suggest an abrupt problem with the . Patient's labs reassuring. Patient with episodes here that I was able to visualize a bedside, patient had no accompanying slurred speech, facial droop, or hemiparesis. Patient with no risk factors for stroke other than intrinsic risk of increased clotting due to . Symptoms not suggestive of central venous sinus thrombus. No other recent infection to suggest meningitis or encephalitis. Patient with no history of complex migraines. Patient states has had slightly similar symptoms prior to with flares of MS although those were more persistent. 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 I feel patient is stable and should wait to have further discussion and evaluation with her neurologist next week. Discussed symptoms to watch and return for, need for close follow-up, patient verbalized understanding and was agreeable with plan. Vital signs stable throughout, doubt occult infectious etiology. Medication Reconcilliation Current Medication List: was personally reviewed by me Blood Pressure Screening Patient's blood pressure: Normal blood pressure Consults Time Called: 1999 Consulting Physician: Dr. Root; [facility] Returned Call: 2004 I discussed the patient's case with Dr. Root; [facility]. At this time, she does not advise any further action. She advises for the patient to keep her appointment with Dr. Dumas next Monday. If new or worsening symptoms occur, she is advised to return to the ED. She is debating whether to take image studies of the patient or start IV steroids Additional Consults: Time Called: 2014 Consulted Physician: Dr. Blayne Turner [facility] Returned Call: 2019 Additional Comments: I discussed the patient's case with Dr. Blayne Turner [facility]. He advises that the patient keep her appointment with neurology next Monday. He does not advise any further treatment at this time. Time Called: 2144 Consulted Physician: Dr. Mehta [facility] Returned Call: 2149 Additional Comments: I discussed the patient's case with Dr. Mehta - [facility]. He states that the patients order was not processed correctly. Impression Primary Impression: Paresthesia Additional Impression: Scribe Attestation The scribe's documentation has been prepared under my direction and personally reviewed by me in its entirety. I confirm that the note above accurately reflects all work, treatment, procedures, and medical decision making performed by me. Departure Information Dispostion Home / Self-Care Referrals No Doctor, Assigned (PCP) Forms HOME CARE DOCUMENTATION FORM, IMPORTANT VISIT INFORMATION, WORK / SCHOOL INSTRUCTIONS Patient Instructions Multiple Sclerosis [facility] Additional Instructions Please keep your appointment with neurology. 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 If you have any worsening symptoms, develop other new accompanying symptoms, have other concerning ob related symptoms, please return to the ER immediately. Please continue to stay well hydrated and take your vitamins. Problem Qualifiers Additional Impression: Weeks of gestation: 35 weeks Qualified Codes: Z3A.35 - 35 weeks gestation of
[2017-06-16 19:25] LABS: BASO % 0.2 %; BASO ABS # 0.02 K/uL (0-0.2); EOS % 0.6 %; EOS ABS # 0.05 K/uL (0-0.5); HEMATOCRIT 36.2 % (37-47); HEMOGLOBIN 12.4 g/dL (12.0-16.0); IG# 0.04 K/uL (0.00-0.02); LYMPH ABS # 1.91 K/uL (1.2-3.4); MEAN CELL VOLUME 86.8 fL (80-100); MEAN CORPUSCULAR HEMOGLOBIN 29.7 pg (25-34); MEAN CORPUSCULAR HGB CONC 34.3 g/dl (32-36); MEAN PLATELET VOLUME 8.5 fL (7.4-10.4); MONO % 10.7 %; MONO ABS # 0.97 K/uL (0.11-0.59); NEUT % 67.1 %; NEUT ABS # 6.09 K/uL (1.4-6.5); PLATELET COUNT 261 K/uL (130-400); RED CELL DISTRIBUTION WIDTH CV 13.5 % (11.5-14.5); RED CELL DISTRIBUTION WIDTH SD 43.1 fL (36.4-46.3); WHITE BLOOD COUNT 9.08 K/uL (4.8-10.8)
[2017-06-16 19:42] LABS: ALBUMIN 2.4 gm/dl (3.4-5.0); ALT/SGPT 17 U/L (12-78); AST/SGOT 13 U/L (15-37); BLOOD UREA NITROGEN 5 mg/dl (7-18); CARBON DIOXIDE 23 mmol/L (21-32); CREATININE 0.47 mg/dl (0.60-1.20); GLUCOSE 72 mg/dl (70-99); POTASSIUM 3.6 mmol/L (3.5-5.1); SODIUM 136 mmol/L (136-145)
[2017-06-16 19:53] LABS: ALKALINE PHOSPHATASE 129 U/L (45-117); TOTAL PROTEIN 6.6 gm/dl (6.4-8.2)
[2017-06-16] MEDS ORDERED: DOCU100C31 PO (20:47)
[2017-06-16] MEDS ORDERED: VALA1TAB2 PO (20:47)
[2017-06-16] MEDS ORDERED: PRENTAB26 PO (20:47)
[2017-06-16 22:42] VITALS: BP 123/88; PULSE 76; TEMP 36.8; O2SAT 99
== END 2017-06-16 22:43 | disposition home or self-care (01) ==
LOC: C.EDB 18:00
DX: R20.2 Paresthesia of skin (principal); Z33.1 Pregnant state, incidental; G35 Multiple sclerosis; Z91.018 Allergy to other foods; Z91.048 Other nonmedicinal substance allergy status

== ENCOUNTER 2017-07-19 13:00 | Emergency (ER) | payer OTHER ==
[~2017-07-19] VITALS: Ht 160 cm; Wt 92.9 kg
[~2017-07-19 13:00] MED LIST changes: +DOCU100C31 PO; -MULT1CHW37 PO; +PRENTAB26 PO; +VALA1TAB2 PO
[2017-07-19 13:05] VITALS: TEMP 36.7; Ht 160 cm; Wt 92.9 kg
[2017-07-19] MEDS ORDERED: GADAVIST IV PRN (15:00)
--- NOTE | 2017-07-19 15:21 | DIAGNOSTIC IMAGING REPORT ---
BRAIN COMBO FOR MS HISTORY: 22 years-old Female hx ms facial paresthesias acute facial paresthesias with left facial and left arm numbness. Slurred speech. Reported history of multiple sclerosis. COMPARISON: None available. 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 There is no restricted diffusion to suggest acute or subacute infarction. The midline structures including the corpus callosum, range stem, optic chiasm, pituitary and pineal glands are unremarkable the sagittal T1 series. No cerebellar tonsillar herniation. No acute intracranial hemorrhage, midline shift, abnormal extra-axial collections or hydrocephalus. 3 mm focus of T2/FLAIR prolongation involves the periventricular left frontal lobe, image 8 series 6 with two 2 mm foci of slightly increased T2/FLAIR signal involving the periventricular left frontal lobe as seen on images 15 and 16 of series 8. Additionally, there is increased T2/FLAIR signal noted involving the posterior right terri and right brachium pontis, images 8 and 9 of series 8. There is no abnormal intra-axial or extra-axial enhancement identified. No delayed postcontrast enhancement. Major flow voids at the level of the skull base appear patent. Orbits are symmetric and within normal limits. Mastoid air cells are clear. Minimal ethmoid mucosal thickening. Scalp, skull and soft tissues are within normal limits. IMPRESSION: There are a few scattered areas of T2/FLAIR prolongation within the periventricular white matter of the left frontal lobe and also within the terri and right brachium pontis suggesting demyelinating disease. No abnormal enhancement to suggest active demyelination. The above report was generated using voice recognition software. It may contain grammatical, syntax or spelling errors. Electronically signed by: Pipe Blount M.D. 07/19/2017 3:20 PM Dictated Date/Time: 07/19/2017 3:05 PM
--- NOTE | 2017-07-19 15:32 | EMERGENCY ROOM VISIT NOTE ---
History Report prepared by Queta: Tim Sellers Under the Supervision of: Dr. Kb Otto D.O. First contact with patient: 13:14 Chief Complaint: OTHER COMPLAINT Stated Complaint: LEFT FACIAL/ARM NUMBESS, LOSS OF BALANCE, SLURRED History of Present Illness The patient is a 22 year old female with MS who presents to the Emergency Room with complaints of a worsening neuro symptoms that started after giving 3 weeks ago. The patient states that she thinks that she has been having an MS flare. She notes that she was diagnosed with it a year ago, and none of the neurologists can see her until next month, so she decided to come here. The patient says that the symptoms have been intermittent, but worsening. She states that she currently has the symptoms. She says that she has been having left-sided facial numbness that started in the lip, that is now wrapping around her eye. She adds that this has progressed to her right arm, and she is losing coordination and writing skills in that arm. The patient says that she has a cold and numbness feeling down her left arm, and her right leg is creating a "balance issue". She states that 2 days ago she fell into a wall and scratched her right arm due to the balance issues. She adds that other people are noticing that she has been having slurred speech at times, and the patient states that she has to really think to get her words out. The patient says that [employer] works for her during her flares, and she last had a flare in October. She states that she has been off of her Copaxone ever since being . Source of History: patient Onset: 3 weeks ago Position: other (global) Symptom Intensity: thinks it is MS flare Quality: other (neuro symptoms) Timing: intermittent, worsening Associated Symptoms: + numbness (left face, right arm, left arm) Note: Slurred speech. Balance issues. Review of Systems See HPI for pertinent positives & negatives. A total of 10 systems reviewed and were otherwise negative. Past Medical & Surgical Medical Problems: (1) Back pain affecting in second trimester (2) Exacerbation of multiple sclerosis (3) Multiple Sclerosis (4) labor in third trimester (5) RLQ abdominal pain (6) Status post fall (7) Threatened premature labor affecting , less than 37 weeks in third trimester, antepartum Surgical Problems: (1) deviated ulna reduction 2006 (2) Tonsillectomy and adenoidectomy (3) Wittman Teeth Removal Family History No significant family history Social History Smoking Status: Never Smoker Alcohol Use: none Marital Status: single Housing Status: lives with family Occupation Status: unemployed Current/Historical Medications Scheduled Cholecalciferol (Vitamin D), 2,000 INTER.UNIT PO QAM Scheduled PRN Docusate Sodium (Docusate Sodium), 1 CAP PO BID PRN for Constipation Valacyclovir Hcl (Valtrex), 2,000 MG PO BID PRN for COLD SORES Allergies Coded Allergies: Kiwi (Verified Allergy, Intermediate, TONGUE AND THROAT SWELL, 07/19/17) Uncoded Allergies: PET DANDER (Allergy, Intermediate, SHORTNESS OF BREATH, 06/10/17) Physical Exam Vital Signs Date Time Temp Pulse Resp B/P (MAP) Pulse Ox O2 Delivery O2 Flow Rate FiO2 07/19/17 14:03 76 18 116/65 99 Room Air 07/19/17 13:05 36.7 78 16 128/78 96 Physical Exam VITAL SIGNS: were reviewed as above. GENERAL:Non-toxic in appearance. SKIN: Warm dry and pink. HEAD: Normocephalic and atraumatic. OROPHARYNX: Is clear and moist NECK: Supple without lymphadenopathy or meningismus. LUNGS: clear. HEART: Regular rate and rhythm. ABDOMEN: Soft and nontender. EXTREMITIES: Warm and well perfused. NEUROLOGICALLY: Awake alert and oriented without focal deficit. Cranial nerves 2 -12 are intact. There is no pronator drift. Cerebellar testing is within normal limits. There is no nystagmus. There is no facial droop. Speech is clear. Vision is grossly normal. MUSCULOSKELETAL: Good muscle tone. No evidence of trauma. Medical Decision & Procedures ER Provider Diagnostic Interpretation: MRI results as stated below per my review and radiologist interpretation: BRAIN COMBO FOR MS HISTORY: 22 years-old Female hx ms facial paresthesias acute facial paresthesias with left facial and left arm numbness. Slurred speech. Reported history of multiple sclerosis. COMPARISON: None available. TECHNIQUE: Multiplanar multisequence MRI of the brain was obtained both with and without the use of 9 mL Gadavist utilizing multiple sclerosis protocol FINDINGS: The large [id number] parachute officer localizer images demonstrate no gross abnormality. There is no restricted diffusion to suggest acute or subacute infarction. The midline structures including the corpus callosum, range stem, optic chiasm, pituitary and pineal glands are unremarkable the sagittal T1 series. No cerebellar tonsillar herniation. No acute intracranial hemorrhage, midline shift, abnormal extra-axial collections or hydrocephalus. 3 mm focus of T2/FLAIR prolongation involves the periventricular left frontal lobe, image 8 series 6 with two 2 mm foci of slightly increased T2/FLAIR signal involving the periventricular left frontal lobe as seen on images 15 and 16 of series 8. Additionally, there is increased T2/FLAIR signal noted involving the posterior right terri and right brachium pontis, images 8 and 9 of series 8. There is no abnormal intra-axial or extra-axial enhancement identified. No delayed postcontrast enhancement. Major flow voids at the level of the skull base appear patent. Orbits are symmetric and within normal limits. Mastoid air cells are clear. Minimal ethmoid mucosal thickening. Scalp, skull and soft tissues are within normal limits. IMPRESSION: There are a few scattered areas of T2/FLAIR prolongation within the periventricular white matter of the left frontal lobe and also within the terri and right brachium pontis suggesting demyelinating disease. No abnormal enhancement to suggest active demyelination. The above report was generated using voice recognition software. It may contain grammatical, syntax or spelling errors. Electronically signed by: Pipe Bluont M.D. 07/19/2017 3:20 PM Dictated Date/Time: 07/19/2017 3:05 PM ED Course 1316: Previous medical records were reviewed. The patient was evaluated in room A9B. A complete history and physical examination was performed. 1328: I discussed the patient with Dr. Natalya Adams family medicine. 1340: I discussed the patient with Dr. Rosalba Adams neurology - he says to scan her now, so he will have something to look at when he sees her. 1500: Gadavist 9 mmol IV PRN. 1525: On reevaluation, the patient is resting comfortably. I discussed the results and findings with the patient. She verbalized agreement of the treatment plan. She was discharged home. Medical Decision Differentials include: Acute coronary syndrome, myocardial infarction, CVA, TIA , anemia, infection, pneumonia, UTI, pyelonephritis, poor nutrition, dehydration , electrolyte disturbance, and hypoglycemia. This is a 22-year-old female who presents to the ED with a chief complaint of possible MS flare. The patient states that she has had the symptoms for a few months. They have been intermittent. Over the past few weeks, she feels like her symptoms may have gotten a little worse. She delivered a baby 3 weeks ago. The patient reports some left lateral face paresthesias. She states that she has to think about picking things up. She states that she has a cold feeling in her left arm and right leg. She states that this causes some balance issues. The patient states that she has been told that she slurs her words on occasion. She states that she has to think about getting her words out at times. The patient's physical exam and neurologic exam today was normal. She is not slurring her words. Her vital signs are normal. After evaluating the patient, I spoke with the patient's PCP and also Dr. Navarrete. He recommends MRI of the brain and follow-up with Dr. Ayala as scheduled on 08/05/17. MRI of the brain did show some chronic demyelination changes but nothing acute. The patient was felt to be stable for discharge. Medication Reconcilliation Current Medication List: was personally reviewed by me Blood Pressure Screening Patient's blood pressure: Normal blood pressure Consults Time Called: 1325 Consulting Physician: Dr. Natalya Adams family medicine Returned Call: 1325 I discussed the patient with Dr. Natalya Adams family medicine. Additional Consults: Time Called: 1335 Consulted Physician: Dr. Rosalba Adams neurology Returned Call: 1340 Additional Comments: I discussed the patient with Dr. Rosalba Adams neurology - he says to scan her now, so he will have something to look at when he sees her. Impression Primary Impression: Paresthesia Additional Impression: Multiple sclerosis Scribe Attestation The scribe's documentation has been prepared under my direction and personally reviewed by me in its entirety. I confirm that the note above accurately reflects all work, treatment, procedures, and medical decision making performed by me. Departure Information Dispostion Home / Self-Care Referrals Jhon Hoang M.D. (PCP) Patient Instructions [facility] Additional Instructions Follow-up with Dr. Ayala on 08/05/17 as scheduled. Return to the emergency department for worsening or new symptoms or any concerns. You have been examined and treated today on an emergency basis only. This is not a substitute for, or an effort to provide, complete comprehensive medical care. It is impossible to recognize and treat all injuries or illnesses in a single emergency department visit. It is therefore important that you follow up closely with your doctor. Call as soon as possible for an appointment. Problem Qualifiers
[2017-07-19 16:01] VITALS: BP 129/63; PULSE 76; O2SAT 98
== END 2017-07-19 16:03 | disposition home or self-care (01) ==
LOC: C.EDB 13:04 → C.EDA 16:03
DX: R20.2 Paresthesia of skin (principal); G35 Multiple sclerosis; Z91.018 Allergy to other foods

== ENCOUNTER 2020-08-19 16:23 | Inpatient (IN) ==
[2020-08-19] MEDS ORDERED: OXYTOCIN 30 UNITS/500 ML BAG IV PRN ×2 (16:30→21:04)
[2020-08-19] MEDS ORDERED: PENICILLIN G POTASSIUM 6 MU in DEXTROSE 5% 250 ML IV STA (16:30)
[2020-08-19] MEDS ORDERED: PENICILLIN G POTASSIUM 3 MU in DEXTROSE 5% 100 ML IV PRN (16:30)
--- NOTE | 2020-08-19 16:42 | History & Physical Report ---
Date of Service August 19, 2020 Assessment & Plan (1) with 37 weeks completed gestation: eBlla Hoyt is a 25 y/o female at 37w1d; presenting for continued contractions with cervical dilation on check in clinic Admit for labor monitoring, as she is under 39 weeks cannot augment labor at this time GBS positive Start Penicillin 6mu now, with q4h until delivery Place on heart monitoring with tocometry Epidural when requested (2) GBS carrier: History of Present Illness Primary Care Provider: Jhon Hoang MD Bella Hoyt is a 25 y/o female at 37w1d; presenting for contractions; no complications with this . Frequently attended OB appointments throughout the . Irregular contractions; good movement; no fluid loss; no vaginal blood loss Labs: (02/04/2020) Blood type: A+ Antibody screen: negative H.5 Hct: 36.0 Plt: 317 Rubella: immune VDRL/RPR: negative Gonorrhea: negative Chlamydia: negative HIV: negative HbSAg: negative GBS + negative Glucose tolerance x2 Allergies Allergy/AdvReac Type Severity Reaction Status Date / Time cat dander Allergy Intermediate Difficulty Verified 08/19/20 16:00 Breathing dog dander Allergy Intermediate Difficulty Verified 08/19/20 16:00 Breathing kiwi Allergy Intermediate TONGUE AND Verified 08/19/20 16:00 THROAT SWELL pineapple Allergy Intermediate Swelling Verified 08/19/20 16:00 of Lip/Tongue/Throat pollen extracts Allergy Mild SNEEZING, Verified 08/19/20 16:00 WATER EYES, ITCHING Home Medications Medication Instructions Recorded Confirmed Type prenat.vits,tavon,[id number]-mgqiw 1 tab PO DAILY 01/28/20 08/19/20 History metoclopramide HCl 10 mg tablet 10 mg PO Q8 PRN #30 tab 02/04/20 08/19/20 Rx breast pump #1 ea 07/29/20 08/19/20 Rx cholecalciferol (vitamin D3) 250 mcg PO DAILY 08/15/20 08/19/20 History [Vitamin D3] Past Med/Surg History Medical History (Updated 08/19/20 @ 16:52 by Surinder Lee MD) Abdominal contusion Asthma Condyloma acuminatum Mild cervical dysplasia Multiple sclerosis labor in third trimester Surgical History H/O wisdom tooth extraction (06/29/12) S/P tonsillectomy and adenoidectomy S/P wrist surgery deviated ulna reduction Family History Grandmother (Paternal) Breast cancer Diabetes Hypertension Grandfather (Paternal) Diabetes Hypertension Mother Hypothyroidism Social History Smoking Status: Never smoker Second Hand Exposure: No; Hx Alcohol Use: No Hx Substance Use: No Preferred Language: Telugu Communication Ability: Effective Parts Salvager Required: No Beliefs That Will Affect Care: None marital status: marital status details: Cody (32) [phone] Current Living Situation: Spouse and Family Current Living Situation Comment: and daughter current occupational status: employed 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 @ [employer] Other Information That Helps Us Care for You: No Feels Safe at Home: Yes Assistive Devices: None Review of Systems Review of Systems: Constitutional: denies fever; chills; sweats; headache Respiratory: denies shortness of breath, difficulty breathing Cardiac: denies chest pain; palpitations; chest pressure Breast: denies breast pain : denies dysuria Physical Exam Physical Exam: General: alert; oriented; no acute distress Cardiac: RRR; no m/g/r Respiratory: CTAB a/p; no wheezes/rales/rhonchi; no increased work of breathing; symmetrical chest rise; no respiratory distress Abdomen: soft; NT/ND; bowel sounds positive Lower extrem: no lower extremity edema or swelling; no deep calf pain; Neisha's sign negative b/l Genitourinary: OB Exam Monitor Tracing: + external FHT monitor used, + external uterine monitor used, + category I and + normal FHT variability Manual exam per Dr. Pike Resident Activity Tracking Resident Involvement: Resident Care Provided Care Provided: OB Delivery
[2020-08-19] MEDS: LACTATED RINGER'S 1,000 ML IV PRN ×2 (16:59→20:38)
[2020-08-19 17:06] LABS: Hematocrit (blood only) 38.2 % (37-47); Hemoglobin 12.9 g/dL (12.0-16.0); Mean Corpuscular Hemoglobin 29.9 pg (25-34); Mean Corpuscular Hgb Conc 33.8 g/dL (32-36); Mean Corpuscular Volume 88.6 fL (80-100); Mean Platelet Volume 8.5 fL (7.4-10.4); Platelet Count 252 K/uL (130-400); RDW Coefficient of Variation 13.7 % (11.5-14.5); RDW Standard Deviation 44.5 fL (36.4-46.3); Red Blood Count 4.31 M/uL (4.2-5.4); White Blood Count 13.37 K/uL (4.8-10.8)
[2020-08-19] MEDS ORDERED: SODIUM CHLORIDE 0.9% INJ 10 ML VIAL ONE (19:37)
[2020-08-19] MEDS ORDERED: BUPIVACAINE 0.25% 30 ML VIAL ONE (19:37)
[2020-08-19] MEDS ORDERED: ePHEDrine sulfate 50 MG/ML AMP ONE (19:37)
[2020-08-19] MEDS ORDERED: fentaNYL citrate 100 MCG/2 ML VIAL ONE (19:37)
[2020-08-19] MEDS ORDERED: fentaNYL 2MCG/ML ROPIVACAINE 1.25MG/ML 100 ML BAG EPI ONE (19:38)
[2020-08-19] MEDS ORDERED: NALOXONE HCL 0.4 MG/1 ML VIAL/CARP IV PRN (19:40)
[2020-08-19] MEDS ORDERED: fentaNYL 2MCG/ML ROPIVACAINE 1.25MG/ML 100 ML BAG EPI PRN (19:40)
[2020-08-19] MEDS ORDERED: ePHEDrine sulfate 50 MG/ML AMP IV PRN (19:40)
[2020-08-19] MEDS ORDERED: diphenhydrAMINE 50 MG/ML VIAL IV PRN (19:40)
[2020-08-19] MEDS ORDERED: ONDANSETRON INJ 2 MG/ML 2 ML VIAL IV PRN (19:40)
[2020-08-19] MEDS ORDERED: NALOXONE HCL 1 MG in SODIUM CHLORIDE 0.9% 1000ML 1,000 ML IV PRN (19:40)
--- NOTE | 2020-08-19 19:47 | Anesthesiology Consultation ---
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 The risk of worsening MS was discussed with the patient from an epidural. She will have an epidural rather than a CSE. The patient accepts the risk and would like to proceed. Height/Weight Height: 5 ft 3 in Weight: 90.718 kg Allergies Allergy/AdvReac Type Severity Reaction Status Date / Time cat dander Allergy Intermediate Difficulty Verified 08/19/20 16:00 Breathing dog dander Allergy Intermediate Difficulty Verified 08/19/20 16:00 Breathing kiwi Allergy Intermediate TONGUE AND Verified 08/19/20 16:00 THROAT SWELL pineapple Allergy Intermediate Swelling Verified 08/19/20 16:00 of Lip/Tongue/Throat pollen extracts Allergy Mild SNEEZING, Verified 08/19/20 16:00 WATER EYES, ITCHING Medications Home Medications Medication Instructions Recorded Confirmed Last Taken prenat.vits,tavon,kiz-byjy-hlfzg 1 tab PO DAILY 01/28/20 08/19/20 08/19/20 breast pump #1 ea 07/29/20 08/19/20 Unknown cholecalciferol (vitamin D3) 250 mcg PO DAILY 08/15/20 08/19/20 08/19/20 [Vitamin D3] Active Medications Generic Name Dose Route Start Last Admin Trade Name Freq PRN Reason Stop Dose Admin Lactated Ringer's 1,000 mls @ 125 mls/hr 08/19/20 16:30 08/19/20 19:24 Lr IV 08/21/20 16:29 999 mls/hr .Q8H PRN Infusion L&D Protocol Protocol NPO Date Last Intake of Fluids: 08/19/20 Time Last Intake of Fluids: 14:00 Date Last Intake of Solids: 08/19/20 Time Last Intake of Solids: 14:00 Past Medical History Medical History Abdominal contusion Asthma Condyloma acuminatum Mild cervical dysplasia Multiple sclerosis labor in third trimester Exercise / Class Metabolic Activity II 4-5 Yardwork/Stairs/Walk up hill Past Family History Family History Grandmother (Paternal) Breast cancer Diabetes Hypertension Grandfather (Paternal) Diabetes Hypertension Mother Hypothyroidism Past Surgical History Surgical History H/O wisdom tooth extraction (06/29/12) S/P tonsillectomy and adenoidectomy S/P wrist surgery deviated ulna reduction Past Anesthesia History No Hx of Anesthesia Complications and No Family Hx of Anesthesia Complications History of PONV No Hx of PONV and No Hx of Motion Sickness Social History Smoking Status: Never smoker Hx Alcohol Use: No Hx Substance Use: No substance use type: does not use Review of Systems no chest pain or sob Physical Exam Vital Signs Last Vital Signs Temp 36.7 C 08/19/20 19:20 Pulse 75 08/19/20 19:46 Resp 18 08/19/20 19:20 BP 121/70 08/19/20 19:07 Pulse Ox 100 08/19/20 19:46 ENMT Mouth: no TMJ abnormality Thyromental Distance: > or= 3.5 Finger Breadths Mallampati Class: II Neck normal visual inspection Respiratory normal respiratory effort Auscultation: lungs clear to auscultation bilaterally Cardiovascular Rate/Rhythm: regular rate and regular rhythm Musculoskeletal Spine: normal cervical ROM Neurologic moves all extremities Psychiatric Orientation: alert and oriented x 3 Testing Laboratory Results 08/19/20 16:57
[2020-08-19] MEDS ORDERED: CALCIUM CARBONATE 500 MG CHEWABLE TAB PO PRN (21:04)
[2020-08-19] MEDS: OXYTOCIN 30 UNITS/500 ML BAG IV PRN ×2 (22:40→23:40)
--- NOTE | 2020-08-19 22:45 | Delivery Summary ---
Vaginal Delivery Summary Date of Service August 19, 2020 Spontaneous vaginal delivery the patient arrived just over 37 weeks tyler at 5 cm over a span of 3 hours progressed to 6 cm she had received penicillin at that states she requested epidural after this artificial rupture of membranes for thin meconium patient rapidly progressed to fully dilated and on catheterization by the nurse baby's head was being delivered I listen to the room the baby was delivered at this stage assess the baby baby was vigorous cord was clamped and cut cord blood obtained placenta removed with gentle traction IV Pitocin started there was no tearing noted sponge and instrument counts correct estimated blood loss 200 mL Vaginal Delivery Summary [facility] Vaginal Delivery Charge Vaginal Delivery Codes: 60108 global code for the antepartum, delivery, and post- Delivery Type Details: Procedure Anesthesia type: Epidural
[2020-08-19] MEDS ORDERED: bisacodyL 10 MG SUPP PR PRN (22:55)
[2020-08-19] MEDS ORDERED: DIPHTHERIA/TETANUS/PERTUSSIS 0.5 ML SYR/VIAL IM ONE (22:55)
[2020-08-19] MEDS ORDERED: oxyCODONE/ACETAMINOPHEN 5mg/325mg TAB PO PRN (22:55)
[2020-08-19] MEDS ORDERED: SUPERCREAM 0.870% 15 GM JAR EXT PRN (22:55)
[2020-08-19] MEDS ORDERED: HYDROCORTISONE ACETATE 25 MG SUPP PR PRN (22:55)
[2020-08-19] MEDS ORDERED: BENZOCAINE 20% AER SPR 82.5 GM CAN EXT PRN (22:55)
[2020-08-20] MEDS: IBUPROFEN 600 MG TAB PO PRN ×5 (00:27→20:33)
[2020-08-20] MEDS: ACETAMINOPHEN 325 MG TAB PO PRN ×3 (06:15→15:43)
[2020-08-20 06:23] LABS: Hematocrit (blood only) 33.8 % (37-47); Hemoglobin 11.3 g/dL (12.0-16.0); Mean Corpuscular Hemoglobin 29.5 pg (25-34); Mean Corpuscular Hgb Conc 33.4 g/dL (32-36); Mean Corpuscular Volume 88.3 fL (80-100); Mean Platelet Volume 8.5 fL (7.4-10.4); Platelet Count 230 K/uL (130-400); RDW Coefficient of Variation 13.8 % (11.5-14.5); RDW Standard Deviation 44.4 fL (36.4-46.3); Red Blood Count 3.83 M/uL (4.2-5.4); White Blood Count 13.74 K/uL (4.8-10.8)
--- NOTE | 2020-08-20 06:26 | Obstetrical Progress Note ---
Date of Service <Surinder Lee MD - Last Filed: 08/20/20 07:45> August 20, 2020 Assessment & Plan <Surinder Lee MD - Last Filed: 08/20/20 07:45> (1) (normal spontaneous vaginal delivery): PPD #1 - s/p at 37 completed weeks Doing well. Ambulating well. Voiding well. Continue to monitor throughout the day given small amount of meconium in amniotic fluid prior to delivery Continue routine care Following discharge to have follow-up in [address] Pike (2) Meconium in amniotic fluid: Subjective <Surinder Lee MD - Last Filed: 08/20/20 07:45> Bella Hoyt is 25y/o PPD#1 s/p at 37 completed weeks complicated by GBS carrier, and thin meconium and amniotic fluid; ambulating well, voiding well, passing gas, having improving/smaller amount of lochia, having cramping abdominal pain, tolerating oral intake well without complications or nausea/vomiting. Physical Exam <Surinder Lee MD - Last Filed: 08/20/20 07:45> HEENT: conjunctive pink, sclera anicteric Heart: regular rate, no appreciable murmur/gallop/rub Lungs: Clear to auscultation, no wheezes, rhonchi, or areas of decreased breath sounds Abdomen: uterine fundus firm, non-tender, 1cm below umbilicus Extremities: no cyanosis, edema, clubbing; nail beds pink; no calf tenderness Results & Data ([facility]) <Surinder Lee MD - Last Filed: 08/20/20 07:45> Vital Signs (Past 12 Hours) Vital Signs Temp Pulse Pulse Resp BP BP Pulse Ox 08/20/20 04:00 36.7 C 75 16 102/67 08/20/20 01:45 36.4 C L 76 16 109/71 08/20/20 01:20 18 08/20/20 00:53 85 134/65 08/20/20 00:38 78 118/61 08/20/20 00:23 78 127/65 08/20/20 00:08 82 119/57 L 08/19/20 23:55 18 08/19/20 23:53 66 127/72 08/19/20 23:48 65 131/73 08/19/20 23:40 18 08/19/20 23:23 80 119/58 L 08/19/20 23:10 37.0 C 20 08/19/20 23:08 77 131/60 08/19/20 22:49 104 H 120/67 08/19/20 22:41 73 99 08/19/20 22:36 88 98 08/19/20 22:31 86 133/72 99 08/19/20 22:26 70 98 08/19/20 22:21 75 98 08/19/20 22:16 70 99 08/19/20 22:15 71 115/62 08/19/20 22:11 67 99 08/19/20 22:06 76 97 08/19/20 22:01 68 98 08/19/20 22:00 70 18 116/62 08/19/20 21:56 88 99 08/19/20 21:51 75 98 08/19/20 21:46 76 120/59 L 99 08/19/20 21:41 77 99 08/19/20 21:36 84 99 08/19/20 21:31 98 H 99 08/19/20 21:30 214 H 18 126/72 08/19/20 21:29 80 87 L 08/19/20 21:26 78 99 08/19/20 21:21 83 100 08/19/20 21:16 77 99 08/19/20 21:15 68 118/58 L 08/19/20 21:11 78 99 08/19/20 21:06 68 99 08/19/20 21:01 73 100 08/19/20 21:00 70 20 120/58 L 08/19/20 20:56 73 100 08/19/20 20:51 74 100 08/19/20 20:46 70 123/59 L 100 08/19/20 20:41 80 100 08/19/20 20:36 77 100 08/19/20 20:31 80 122/78 100 08/19/20 20:30 36.7 C 18 08/19/20 20:26 82 100 08/19/20 20:21 83 100 08/19/20 20:16 80 100 08/19/20 20:15 84 113/59 L 08/19/20 20:12 81 124/59 L 08/19/20 20:11 79 100 08/19/20 20:09 82 131/60 08/19/20 20:06 88 126/57 L 100 08/19/20 20:03 90 124/56 L 08/19/20 20:01 88 100 08/19/20 20:00 83 18 123/63 08/19/20 19:57 83 131/73 08/19/20 19:56 80 100 08/19/20 19:51 79 100 08/19/20 19:50 74 131/73 08/19/20 19:46 75 100 08/19/20 19:20 36.7 C 18 08/19/20 19:07 80 121/70 Laboratory Results 08/20/20 08/19/20 08/19/20 Range/Units 06:02 Unknown Unknown WBC 13.74 H (4.8-10.8) K/uL RBC 3.83 L (4.2-5.4) M/uL Hgb 11.3 L (12.0-16.0) g/dL Hct 33.8 L (37-47) % MCV 88.3 (80-100) fL MCH 29.5 (25-34) pg MCHC 33.4 (32-36) g/dL RDW Std Deviation 44.4 (36.4-46.3) fL RDW Coeff of Marina 13.8 (11.5-14.5) % Plt Count 230 (130-400) K/uL MPV 8.5 (7.4-10.4) fL COVID-19 Eval [facility] SARS-CoV-2, RNA, NAAT NEGATIVE (NEGATIVE) 08/19/20 Range/Units 16:57 WBC 13.37 H (4.8-10.8) K/uL RBC 4.31 (4.2-5.4) M/uL Hgb 12.9 (12.0-16.0) g/dL Hct 38.2 (37-47) % MCV 88.6 (80-100) fL MCH 29.9 (25-34) pg MCHC 33.8 (32-36) g/dL RDW Std Deviation 44.5 (36.4-46.3) fL RDW Coeff of Marina 13.7 (11.5-14.5) % Plt Count 252 (130-400) K/uL MPV 8.5 (7.4-10.4) fL COVID-19 Eval Order SARS-CoV-2, RNA, NAAT (NEGATIVE) Medications Administered Current Inpatient Medications Acetaminophen (Acetaminophen 325 Mg Tab) 650 mg PO Q6H PRN PRN Reason: Pain/NICHOLSON/Fever Stop: 09/18/20 22:54 Last Admin: 08/20/20 06:15 Dose: 650 mg Documented by: Benzocaine (Benzocaine 20% Aer Spr 82.5 Gm Can) 1 appln EXT PRN PRN PRN Reason: Perineal Discomfort Stop: 09/18/20 22:54 Bisacodyl (Bisacodyl 5 Mg Tabec) 5 mg PO 1999 [facility] Stop: 08/20/20 20:01 Bisacodyl (Bisacodyl 10 Mg Supp) 10 mg NM DAILY PRN PRN Reason: No BM on 2nd post- day Stop: 09/18/20 22:54 Cocaine HCl (Supercream 0.870% 15 Gm Jar) 1 gm EXT BID PRN PRN Reason: Hemorrhoidal Inflammation Stop: 09/02/20 22:54 Last Admin: 08/20/20 02:04 Dose: 1 gm Documented by: Docusate Sodium (Docusate Sodium 100 Mg Cap) 100 mg PO DAILY@ [facility] Stop: 09/19/20 07:59 Hydrocortisone (Hydrocortisone Acetate 25 Mg Supp) 25 mg NM BID PRN PRN Reason: Hemorrhoidal Inflammation Stop: 09/18/20 22:54 Oxytocin (Pitocin) 30 units in 500 mls @ 333.333 mls/hr IV .Q1H30M PRN; Protocol PRN Reason: Bleeding Control Stop: 09/18/20 22:54 Last Titration: 08/20/20 02:05 Dose: Infused Documented by: Ibuprofen (Ibuprofen 600 Mg Tab) 600 mg PO Q4H PRN PRN Reason: Pain/NICHOLSON/Cramping/Fever Stop: 09/18/20 22:54 Last Admin: 08/20/20 05:12 Dose: 600 mg Documented by: Non-Formulary Medication (Prenat.Vits,Don,Wzs-Pqbd-Jiwhl) 1 tab PO DAILY [facility] Stop: 09/19/20 08:59 Oxycodone/Acetaminophen (Oxycodone/Acetaminophen 5mg/325mg Tab) 1 tab PO Q4H PRN PRN Reason: Pain not relieved by... Stop: 09/02/20 22:54 Prenat Multivit/Director Validation/Iron/Folic Ac ( Vitamin 1 Tab) 1 tab PO DAILY@08 KARLOS Stop: 09/19/20 07:59 <Yusra Pike MD, FACOG - Last Filed: 08/20/20 10:04> Co-Signing Physician Notes Resident Physician Supervision Note: I interviewed and examined the patient. Discussed with [Jesus] and agree with findings and plan as documented in the note. Any exceptions or clarifications are listed here: [None] Documented By: Yusra Pike MD, FACOG Resident Activity Tracking <Surinder Lee MD - Last Filed: 08/20/20 07:45> Resident Involvement: Resident Care Provided Care Provided: OB Delivery
[2020-08-20] MEDS: PRENATAL VITAMIN 1 TAB PO SCH (08:22)
[2020-08-20] MEDS: DOCUSATE SODIUM 100 MG CAP PO SCH ×2 (08:22→20:34)
[2020-08-20] MEDS ORDERED: NON-FORMULARY MEDICATION (Prenat.Vits,Cal,Min-Iron-Folic tablet) PO SCH (09:00)
[2020-08-20] MEDS ORDERED: bisacodyL 5 MG TABEC PO SCH (20:00)
[2020-08-21] MEDS: IBUPROFEN 600 MG TAB PO PRN ×2 (03:10→07:40)
--- NOTE | 2020-08-21 06:10 | Obstetrical Progress Note ---
Date of Service <Surinder Lee MD - Last Filed: 08/21/20 07:05> August 21, 2020 Assessment & Plan <Surinder Lee MD - Last Filed: 08/21/20 07:05> (1) (normal spontaneous vaginal delivery): PPD #2 - s/p at 37 completed weeks Doing well. Ambulating well. Voiding well. Continue routine care Following discharge to have follow-up in [address] Pike (2) Meconium in amniotic fluid: Subjective <Surinder Lee MD - Last Filed: 08/21/20 07:05> Bella Hoyt is 25y/o PPD#2 s/p at 37 completed weeks complicated by GBS carrier, and thin meconium and amniotic fluid; ambulating well, voiding well, passing gas, having smaller amount of lochia, continuing to have cramping abdominal pain, tolerating oral intake without complications or nausea/vomiting. Physical Exam <Surinder Lee MD - Last Filed: 08/21/20 07:05> HEENT: conjunctive pink, sclera anicteric Heart: regular rate, no appreciable murmur/gallop/rub Lungs: Clear to auscultation, no wheezes, rhonchi, or areas of decreased breath sounds Abdomen: uterine fundus firm, non-tender, 2cm below umbilicus Extremities: no cyanosis, edema, clubbing; nail beds pink; no calf tenderness Results & Data ([facility]) <Surinder Lee MD - Last Filed: 08/21/20 07:05> Vital Signs (Past 12 Hours) Vital Signs Temp Pulse Resp BP Pulse Ox 08/20/20 23:21 36.9 C 65 16 112/71 98 08/20/20 19:59 37.1 C 81 18 108/71 Laboratory Results 08/21/20 Range/Units 05:51 Hgb 12.1 (12.0-16.0) g/dL Hct 36.8 L (37-47) % Medications Administered Current Inpatient Medications Acetaminophen (Acetaminophen 325 Mg Tab) 650 mg PO Q6H PRN PRN Reason: Pain/NICHOLSON/Fever Stop: 09/18/20 22:54 Last Admin: 08/20/20 15:43 Dose: 650 mg Documented by: Benzocaine (Benzocaine 20% Aer Spr 82.5 Gm Can) 1 appln EXT PRN PRN PRN Reason: Perineal Discomfort Stop: 09/18/20 22:54 Bisacodyl (Bisacodyl 10 Mg Supp) 10 mg [place] DAILY PRN PRN Reason: No BM on 2nd post- day Stop: 09/18/20 22:54 Cocaine HCl (Supercream 0.870% 15 Gm Jar) 1 gm EXT BID PRN PRN Reason: Hemorrhoidal Inflammation Stop: 09/02/20 22:54 Last Admin: 08/20/20 02:04 Dose: 1 gm Documented by: Docusate Sodium (Docusate Sodium 100 Mg Cap) 100 mg PO DAILY@ [facility] Stop: 09/19/20 07:59 Last Admin: 08/20/20 20:34 Dose: 100 mg Documented by: Hydrocortisone (Hydrocortisone Acetate 25 Mg Supp) 25 mg [place] BID PRN PRN Reason: Hemorrhoidal Inflammation Stop: 09/18/20 22:54 Oxytocin (Pitocin) 30 units in 500 mls @ 333.333 mls/hr IV .Q1H30M PRN; Protocol PRN Reason: Bleeding Control Stop: 09/18/20 22:54 Last Titration: 08/20/20 02:05 Dose: Infused Documented by: Ibuprofen (Ibuprofen 600 Mg Tab) 600 mg PO Q4H PRN PRN Reason: Pain/NICHOLSON/Cramping/Fever Stop: 09/18/20 22:54 Last Admin: 08/21/20 03:10 Dose: 600 mg Documented by: Oxycodone/Acetaminophen (Oxycodone/Acetaminophen 5mg/325mg Tab) 1 tab PO Q4H PRN PRN Reason: Pain not relieved by... Stop: 09/02/20 22:54 Last Admin: 08/20/20 22:28 Dose: 1 tab Documented by: Prenat Multivit/Dunn/Iron/Folic Ac ( Vitamin 1 Tab) 1 tab PO DAILY@08 [facility] Stop: 09/19/20 07:59 Last Admin: 08/20/20 08:22 Dose: Not Given Documented by: <Amarilys Proctor MD, FACOG - Last Filed: 08/21/20 07:37> Co-Signing Physician Notes Resident Physician Supervision Note: I interviewed and examined the patient. Discussed with Dr. Lee and agree with findings and plan as documented in the note. Any exceptions or clarifications are listed here: Doing well ppd 2. Plan d/c. Instructions given. Documented By: Amarilys Proctor MD, FACOG Resident Activity Tracking <Surinder Lee MD - Last Filed: 08/21/20 07:05> Resident Involvement: Resident Care Provided Care Provided: OB Delivery
[2020-08-21 06:14] LABS: Hematocrit (blood only) 36.8 % (37-47); Hemoglobin 12.1 g/dL (12.0-16.0)
[2020-08-21] MEDS: DOCUSATE SODIUM 100 MG CAP PO SCH (07:40)
[2020-08-21] MEDS: PRENATAL VITAMIN 1 TAB PO SCH (07:40)
== END 2020-08-21 10:40 | disposition home or self-care (01) | DRG 807 ==
LOC: OPB 16:23 → 4S1 16:25 → 4S2 08-20 01:30

== ENCOUNTER 2024-11-30 18:34 | Observation (INO) ==
[2024-11-30 18:59] VITALS: O2SAT 100
[2024-11-30 19:15] LABS: Hematocrit (blood only) 39.7 % (37.0-47.0); Hemoglobin 13.6 g/dl (12.0-16.0); Mean Corpuscular Hemoglobin 30.4 pg (25.0-34.0); Mean Corpuscular Volume 88.8 fL (80.0-100.0); Platelet Count 369 K/uL (130-400); RDW Standard Deviation 40.2 fL (36.4-46.3); Red Blood Count 4.47 M/uL (4.20-5.40); White Blood Count 10.66 K/ul (4.8-10.8)
[2024-11-30] MEDS: OPTIRAY 320 125ml IV ONE (19:16)
[2024-11-30] MEDS: SODIUM CHLORIDE 0.9% 1,000 ML IV ONE (19:24)
--- NOTE | 2024-11-30 19:24 | Emergency Department Note ---
Impression & Plan Acute left-sided weakness, Multiple sclerosis, Stroke-like symptoms ED Provider Note NAME: KOKI LEMOS AGE: 29 SEX: F : 1995 ARRIVES VIA: Walk-In INFORMANT: Patient ED PROVIDER(S): Jose D Zuleta MD CHIEF COMPLAINT: Neurologic symptoms HISTORY OF PRESENT ILLNESS: The patient is a 29-year-old female with diagnosed MS. She was on Kesimpta for the MS however, this has been been on hold for 2 months. The patient is to start rituximab as an injection 6 days from today. The patient woke up yesterday morning with some numbness to her left lower lip. Today, she has had the numbness spread across the face and to her left tongue and even her throat. Her left arm and leg feel weak. No fall. The patient has not had fever, no cough or cold or congestion. She has felt fatigued. She is not on blood thinning agents. Of note, the patient has noted a headache. PMHx/PSHx/Social Hx: See Below PHYSICAL EXAM: GENERAL: Patient is in no acute distress. HEENT: No acute trauma, normocephalic atraumatic, mucous membranes moist, no nasal congestion. NECK: No stridor, no adenopathy, no meningismus, trachea is midline. LUNGS: Clear to auscultation bilaterally, no wheeze, no rhonchi, breath sounds equal. HEART: Subtle systolic murmur, irregular rhythm, normal rate. ABDOMEN: Soft, nontender, no peritonitis. EXTREMITIES: No cyanosis, full range of motion of all the joints without pain or difficulty. NEUROLOGIC: Oriented x 3, no facial droop. Tongue protrudes midline. No speech slur. She does have some drift to the left upper and lower extremity and some subtle difficulty with cerebellar function of the left upper and lower extremity. SKIN: No jaundice, no diaphoresis. DIFFERENTIAL DIAGNOSIS: MS flare, stroke, intracranial bleeding, infection, electrolyte imbalance, dehydration, among others. EMERGENCY DEPARTMENT PROCEDURES: MEDICAL DECISION MAKING: There is no leukocytosis or concerning anemia. There is a normal platelet count. No coagulopathy. No renal failure or significant electrolyte abnormality. No concerning liver enzyme elevation. The patient appeared to be in a euthyroid state. testing was negative. Urinalysis does not show infection. Chest x-ray shows potential atelectasis at the left base. Brain CT shows no acute bleed or mass effect. CT angio of the head and neck were performed, there was no stenosis or clot. On exam, the patient was not toxic or febrile. She had obvious left-sided weakness by testing. A stroke alert was called given her presentation. The stroke neurologist felt that the presentation was likely consistent with MS but, recommended further stroke workup in the hospital. The patient was not a TNK candidate as she was far out of the window for this medication. Patient was given IV saline for hydration. I did speak with the patient and family. I spoke with case management, the on- call hospitalist was consulted. Prior/Outside records/notes reviewed: None ECG per my interpretation: Indication was possible stroke. The ECG shows a sinus rhythm with frequent PACs. The rate is 81. There is no acute ST elevation. QTc is 446. Continuous Cardiac Monitoring per my interpretation: An order was placed for continuous cardiac monitoring. The monitor shows a rate of 81 with sinus rhythm and PVCs Imaging/x-ray results per my interpretation: Chest x-ray shows some potential atelectasis or infiltrate at the left base. Chronic Medical/Social conditions affecting care: History of MS. Care/Management discussed with: [facility] telestroke neurology-Dr. Kumar. Case management and the on-call hospitalist. Level of care consideration(s): After review of the information above and other included data: --I believe the patient requires escalation of care to admission Critical Care Note: I have personally spent 46 minutes of critical care time in the direct management of this patient. This includes bedside care, interpretation of diagnostic studies, and testing, discussion with consultants, patient, and family members, and other required patient management activities. This 46 minutes is in excess of all separately billable procedures. DISPOSITION: Admission Past Med/Surg History Problem List (Updated 11/30/24 @ 23:05 by Jose D Zuleta MD) Stroke-like symptoms (Acute) Multiple sclerosis (Acute) Acute left-sided weakness (Acute) Headache Right sided weakness (Acute) Menorrhagia due to intrauterine device (IUD) state (normal spontaneous vaginal delivery) Meconium in amniotic fluid with 37 weeks completed gestation with 36 completed weeks gestation Uterine contractions GBS carrier size inconsistent with dates Hemorrhoids (Acute) Vitamin D deficiency Encounter for anatomic survey Encounter for supervision of normal in multigravida, antepartum Medical History Asthma Multiple sclerosis Mild cervical dysplasia Condyloma acuminatum labor in third trimester Abdominal contusion Surgical History H/O wisdom tooth extraction (06/29/12) S/P tonsillectomy and adenoidectomy S/P wrist surgery deviated ulna reduction Family History Grandmother (Paternal) Breast cancer Diabetes Hypertension Grandfather (Paternal) Diabetes Hypertension Mother Hypothyroidism Social History Smoking Status: Never smoker Second Hand Exposure: No; Do You Dip or Chew Tobacco: No; Hx Alcohol Use: No Hx Substance Use: No Preferred Language: [place]ese Communication Ability: Effective Management Professionals Required: No Beliefs That Will Affect Care: None marital status: marital status details: Cody (32) [phone] Current Living Situation: Spouse and Family Current Living Situation Comment: and daughter current occupational status: employed 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 @ [employer] Feels Safe at Home: Yes Assistive Devices: None Allergies Allergies Allergy/AdvReac Type Severity Reaction Status Date / Time banana Allergy Severe Swelling Verified 11/09/24 18:33 of Lip/Tongue/Throat cat dander Allergy Severe Difficulty Verified 11/09/24 18:33 Breathing dog dander Allergy Severe Difficulty Verified 11/09/24 18:33 Breathing kiwi Allergy Severe TONGUE AND Verified 11/09/24 18:33 THROAT SWELL latex Allergy Severe Anaphylaxis Verified 11/09/24 18:33 pineapple Allergy Severe Swelling Verified 11/09/24 18:33 of Lip/Tongue/Throat pollen extracts Allergy Intermediate SNEEZING, Verified 11/09/24 18:33 WATER EYES, ITCHING Home Meds Home Medications Medication Instructions Recorded Confirmed cholecalciferol (vitamin D3) 125 10,000 unit PO DAILY 08/15/20 11/30/24 mcg (5,000 unit) tablet (Vitamin D3) citalopram 10 mg tablet 20 mg PO QAM 11/24/23 11/30/24 lorazepam 0.5 mg tablet 0.5 - 1 mg PO HS PRN Anxiety 11/09/24 11/30/24 nortriptyline 10 mg capsule 20 mg PO HS 11/09/24 11/30/24 ofatumumab 20 mg/0.4 mL 0 mg subcut .[id number] 11/09/24 11/30/24 subcutaneous pen injector (Kesimpta Pen) promethazine 25 mg tablet 25 mg PO Q6H PRN NAUSEA/VOMITING 11/09/24 11/30/24 Results & Data (ED) Vital Signs Vital Signs - 24 hr 11/30/24 18:37 11/30/24 18:54 11/30/24 18:54 Temperature 36.6 C Temperature Source Temporal Artery Scan Pulse Rate 90 Pulse Rate [Apical] 81 Respiratory Rate 18 20 Respiratory Effort / Characteristics Non-Labored Respiratory Depth Normal Blood Pressure 138/90 Blood Pressure [Right Arm] 139/84 Blood Pressure Mean 106 Blood Pressure Mean [Right Arm] 102 Pulse Oximetry 92 100 100 Oxygen Delivery Method Room Air Room Air Room Air Sepsis Recent Fever Within 48 Hours No Sepsis New/Unexplained Change in Mental Status N/A Sepsis Action Taken by Nursing No Action Required 11/30/24 19:03 11/30/24 19:09 11/30/24 19:36 Temperature Temperature Source Pulse Rate 88 81 88 Pulse Rate [Apical] Respiratory Rate 19 24 Respiratory Effort / Characteristics Respiratory Depth Blood Pressure 129/84 138/79 Blood Pressure [Right Arm] Blood Pressure Mean 99 98 Blood Pressure Mean [Right Arm] Pulse Oximetry 100 100 Oxygen Delivery Method Room Air Room Air Sepsis Recent Fever Within 48 Hours Sepsis New/Unexplained Change in Mental Status Sepsis Action Taken by Usp Medications Current Medication List: was personally reviewed by me Laboratory Data Attestation: I reviewed the patient's lab results. 11/30/24 19:00 11/30/24 19:00 Lab Results 11/30/24 11/30/24 11/30/24 Range/Units 19:00 19:05 20:15 WBC 10.66 (4.8-10.8) K/ul RBC 4.47 (4.20-5.40) M/uL Hgb 13.6 (12.0-16.0) g/dl POC Hgb 13.6 (12.0-16.0) g/dl Hct 39.7 (37.0-47.0) % POC Hct 40 (37-47) % MCV 88.8 (80.0-100.0) fL MCH 30.4 (25.0-34.0) pg MCHC 34.3 (32.0-36.0) g/dL RDW Std Deviation 40.2 (36.4-46.3) fL RDW Coeff of Marina 12.5 (11.5-14.5) % Plt Count 369 (130-400) K/uL MPV 8.4 L (9.4-12.4) fL PT 10.2 (9.0-12.0) Seconds INR 0.9 (0.9-1.1) APTT 27 (21-31) Seconds PTT Ratio 1.0 POC Sodium 140 (135-144) mmol/L Sodium 138 (136-145) mmol/L POC Potassium 3.6 (3.3-5.0) mmol/L Potassium 3.7 (3.5-5.1) mmol/L POC Chloride 101 (101-112) mmol/L Chloride 102 (98-107) mmol/L Carbon Dioxide 29 (21-32) mmol/L POC Total CO2 25 (24-31) mmol/L Anion Gap 7 (3-11) POC Anion Gap 18.0 (16-25) mmol/L POC BUN 16 (7-18) mg/dl BUN 17 (6-23) mg/dl Creatinine 0.80 (0.6-1.2) mg/dl POC Creatinine 0.9 (0.6-1.3) mg/dl Est Cr Clr Drug Dosing 107.3 ml/min eGFR 100.96 BUN/Creatinine Ratio 21.3 H (10-20) Glucose 90 (70-99(Fasting)) mg/dl POC Glucose (other) 90 (70-99) mg/dl Calcium 10.1 (8.6-10.3) mg/dl POC Ioniz Calcium Glenn 1.26 (1.12-1.32) mmol/l Magnesium 2.3 (1.7-2.4) mg/dl Total Bilirubin 0.5 (0.2-1.0) mg/dl AST 18 (13-39) U/L ALT 21 (7-52) U/L Alkaline Phosphatase 50 (34-104) U/L Total Protein 7.7 (6.0-8.3) gm/dl Albumin 4.7 (3.4-5.0) gm/dl Globulin 3.0 (2.5-4.0) gm/dl Albumin/Globulin Ratio 1.6 (0.9-2) TSH 0.955 (0.300-4.500) uIu/ml HCG, Qual Negative (Negative) Urine Color Yellow Urine Appearance Clear (Clear) Urine pH 6.0 (4.5-7.5) Ur Specific [place] > 1.045 H (1.000-1.030) Urine Protein Negative (Negative) Urine Glucose (UA) Negative (Negative) Urine Ketones Negative (Negative) Urine Blood Trace H (Negative) Urine Nitrite Negative (Negative) Urine Bilirubin Negative (Negative) Urine Urobilinogen Negative (Negative) Ur Leukocyte Esterase Negative (Negative) Urine WBC (Auto) 0-5 (0-5) /hpf Urine RBC (Auto) 3-5 H (0-2) /hpf U Hyaline Cast (Auto) 0-2 (0-2) /lpf U Epithel Cells (Auto) 0-2 (0-2) /hpf Urine Bacteria (Auto) None Seen (None Seen) Urine Comment Administered Medications Potassium Chloride/Sodium Chloride (Normal Saline W/20 Meq Kcl) 20 meq in 1,000 mls @ 60 mls/hr IV .[id number] ONE Stop: 12/01/24 14:16 Last Admin: 11/30/24 22:34 Dose: Not Given Documented By: RHIANNA Discontinued Medications Aspirin (Aspirin 81 Mg Ectab) 81 mg PO NOW STA Stop: 11/30/24 21:38 Last Admin: 11/30/24 22:34 Dose: Not Given Documented By: RHIANNA Sodium Chloride (Nss) 1,000 mls @ 999 mls/hr IV .Q1H1M ONE Stop: 11/30/24 20:10 Last Infusion: 11/30/24 22:45 Dose: Infused Documented By: Admin: 11/30/24 19:24 Dose: 999 mls/hr Documented By: MAREK Ioversol (Optiray 320 125ml) 119 ml IV ONCE ONE Stop: 11/30/24 19:16 Last Admin: 11/30/24 19:16 Dose: 119 ml Documented By: CHRISTIANEW Imaging Data Radiologist's Impression: Chest X-Ray 11/30/24 18:59 Chest radiograph, one view History: Stroke alert Comparison: 11/09/2024 Findings: Single AP view of the chest performed. A subtle area of opacity at the left lower lung is new from prior. No pleural effusion. No pneumothorax. The cardiomediastinal silhouette is within normal limits. Normal pulmonary vascularity. No evidence for lymphadenopathy. No visualized bony or soft tissue abnormality. Impression: Small area of opacity of the left lower lung is new, concerning for infection or aspiration versus atelectasis Electronically signed by Ruslan Velasco 11-30-2024 7:[address] 11/30/24 19:[address] without contrast CT angiogram of the neck CT angiogram of the brain with contrast Provided History: Neuro deficit Comparison: None Technique: HEAD CT: Using multidetector thin collimation helical acquisition technique, axial, coronal and sagittal CT images from the skull base to the vertex were obtained without intravenous contrast. HEAD and NECK CTA: During rapid bolus intravenous injection of nonionic contrast material, axial images were obtained using thin collimation multidetector helical technique from the base of the neck through the of vertex of the head. This CT angiogram data was reconstructed at thin intervals with mild overlap. 3D reconstructions were obtained. The axial source images, multiplanar reformations, 3D reconstructions in both maximum intensity projection display and volume rendered models were reviewed. Dose reduction techniques were achieved by using automatic exposure control and/or adjustment of mA and/or kV according to patient size and/or use of iterative reconstruction technique. Findings: Head CT: There is no intracranial hemorrhage, mass effect, or midline shift. Silvestre/white matter differentiation in both cerebral hemispheres is preserved. Ventricles are proportionate to the cerebral sulci. Head CTA demonstrates no aneurysm or stenosis of the major intracranial arteries. Neck CTA demonstrates no stenosis of the major cervical arteries. The origins of the great vessels from the aortic arch are patent. No mass is noted within the visualized portions of the cervical soft tissues or lung apices. Impression: 1. Head CTA demonstrates no aneurysm or stenosis of the major intracranial arteries, 2. Neck CTA demonstrates no stenosis of the major cervical arteries. 3. No intracranial hemorrhage on the noncontrast head CT. Electronically signed by Ruslan Velasco 11-30-2024 7:34 PM Head CTA 11/30/24 19:[address] without contrast CT angiogram of the neck CT angiogram of the brain with contrast Provided History: Neuro deficit Comparison: None Technique: HEAD CT: Using multidetector thin collimation helical acquisition technique, axial, coronal and sagittal CT images from the skull base to the vertex were obtained without intravenous contrast. HEAD and NECK CTA: During rapid bolus intravenous injection of nonionic contrast material, axial images were obtained using thin collimation multidetector helical technique from the base of the neck through the of vertex of the head. This CT angiogram data was reconstructed at thin intervals with mild overlap. 3D reconstructions were obtained. The axial source images, multiplanar reformations, 3D reconstructions in both maximum intensity projection display and volume rendered models were reviewed. Dose reduction techniques were achieved by using automatic exposure control and/or adjustment of mA and/or kV according to patient size and/or use of iterative reconstruction technique. Findings: Head CT: There is no intracranial hemorrhage, mass effect, or midline shift. Silvestre/white matter differentiation in both cerebral hemispheres is preserved. Ventricles are proportionate to the cerebral sulci. Head CTA demonstrates no aneurysm or stenosis of the major intracranial arteries. Neck CTA demonstrates no stenosis of the major cervical arteries. The origins of the great vessels from the aortic arch are patent. No mass is noted within the visualized portions of the cervical soft tissues or lung apices. Impression: 1. Head CTA demonstrates no aneurysm or stenosis of the major intracranial arteries, 2. Neck CTA demonstrates no stenosis of the major cervical arteries. 3. No intracranial hemorrhage on the noncontrast head CT. Electronically signed by Ruslan Velasco 11-30-2024 7:34 PM Neck CTA 11/30/24 19:[address] without contrast CT angiogram of the neck CT angiogram of the brain with contrast Provided History: Neuro deficit Comparison: None Technique: HEAD CT: Using multidetector thin collimation helical acquisition technique, axial, coronal and sagittal CT images from the skull base to the vertex were obtained without intravenous contrast. HEAD and NECK CTA: During rapid bolus intravenous injection of nonionic contrast material, axial images were obtained using thin collimation multidetector helical technique from the base of the neck through the of vertex of the head. This CT angiogram data was reconstructed at thin intervals with mild overlap. 3D reconstructions were obtained. The axial source images, multiplanar reformations, 3D reconstructions in both maximum intensity projection display and volume rendered models were reviewed. Dose reduction techniques were achieved by using automatic exposure control and/or adjustment of mA and/or kV according to patient size and/or use of iterative reconstruction technique. Findings: Head CT: There is no intracranial hemorrhage, mass effect, or midline shift. Silvestre/white matter differentiation in both cerebral hemispheres is preserved. Ventricles are proportionate to the cerebral sulci. Head CTA demonstrates no aneurysm or stenosis of the major intracranial arteries. Neck CTA demonstrates no stenosis of the major cervical arteries. The origins of the great vessels from the aortic arch are patent. No mass is noted within the visualized portions of the cervical soft tissues or lung apices. Impression: 1. Head CTA demonstrates no aneurysm or stenosis of the major intracranial arteries, 2. Neck CTA demonstrates no stenosis of the major cervical arteries. 3. No intracranial hemorrhage on the noncontrast head CT. Electronically signed by Ruslan Velasco 11-30-2024 7:34 PM Discharge Plan Visit Data Chief Complaint: Neuro Symptoms/Deficit Stated Complaint: L FACE NUMB, TONGUE NUMBNESS, HAS MS ED Provider: Jose D Zuleta Discharge Problem: Acute left-sided weakness, Multiple sclerosis, Stroke-like symptoms Patient Disposition: Admitted As Inpatient Condition: Fair Forms Stand Alone Forms: [facility] Prescriptions Prescriptions: No Action cholecalciferol (vitamin D3) [Vitamin D3] 125 mcg (5,000 unit) Tablet 10,000 unit PO DAILY citalopram 10 mg tablet 20 mg PO QAM lorazepam 0.5 mg tablet 0.5 - 1 mg PO HS PRN (Reason: Anxiety) nortriptyline 10 mg capsule 20 mg PO HS promethazine 25 mg tablet 25 mg PO Q6H PRN (Reason: NAUSEA/VOMITING) Kesimpta Pen 20 mg/0.4 mL pen injector 0 mg SUBCUT .[id number] Referrals Referrals: Jhon Hoang MD [Primary Care Provider] -
[2024-11-30 19:33] LABS: Alanine Aminotransferase 21.0 U/L (7-52); Albumin Globulin Ratio 1.6 (0.9-2); Alkaline Phosphatase 50.0 U/L (34-104); Anion Gap 7.0 (3-11); Bilirubin,Total 0.5 mg/dl (0.2-1.0); Blood Urea Nitrogen 17.0 mg/dl (6-23); Calcium 10.1 mg/dl (8.6-10.3); Carbon Dioxide 29.0 mmol/L (21-32); Chloride 102.0 mmol/L (98-107); Creatinine Clr Calc Pharmacy 107.3 ml/min; Globulin 3.0 gm/dl (2.5-4.0); Glucose 90.0 mg/dl (70-99(Fasting)); Magnesium 2.3 mg/dl (1.7-2.4); Potassium 3.7 mmol/L (3.5-5.1); Sodium 138.0 mmol/L (136-145); Total Protein 7.7 gm/dl (6.0-8.3)
[2024-11-30 19:34] LABS: Pregnancy Test, Serum Negative (Negative)
--- NOTE | 2024-11-30 19:34 | CT Scan Report ---
Head CT without contrast CT angiogram of the neck CT angiogram of the brain with contrast Provided History: Neuro deficit Comparison: None Technique: HEAD CT: Using multidetector thin collimation helical acquisition technique, axial, coronal and sagittal CT images from the skull base to the vertex were obtained without intravenous contrast. HEAD and NECK CTA: During rapid bolus intravenous injection of nonionic contrast material, axial images were obtained using thin collimation multidetector helical technique from the base of the neck through the of vertex of the head. This CT angiogram data was reconstructed at thin intervals with mild overlap. 3D reconstructions were obtained. The axial source images, multiplanar reformations, 3D reconstructions in both maximum intensity projection display and volume rendered models were reviewed. Dose reduction techniques were achieved by using automatic exposure control and/or adjustment of mA and/or kV according to patient size and/or use of iterative reconstruction technique. Findings: Head CT: There is no intracranial hemorrhage, mass effect, or midline shift. Silvestre/white matter differentiation in both cerebral hemispheres is preserved. Ventricles are proportionate to the cerebral sulci. Head CTA demonstrates no aneurysm or stenosis of the major intracranial arteries. Neck CTA demonstrates no stenosis of the major cervical arteries. The origins of the great vessels from the aortic arch are patent. No mass is noted within the visualized portions of the cervical soft tissues or lung apices. Impression: 1. Head CTA demonstrates no aneurysm or stenosis of the major intracranial arteries, 2. Neck CTA demonstrates no stenosis of the major cervical arteries. 3. No intracranial hemorrhage on the noncontrast head CT. Electronically signed by Ruslan Velasco 11-30-2024 7:34 PM
[2024-11-30 19:44] LABS: INR 0.9 (0.9-1.1); Partial Thromboplastin Time 27 Seconds (21-31); Prothrombin Time 10.2 Seconds (9.0-12.0)
[2024-11-30 19:48] LABS: Thyroid Stimulating Hormone 0.955 uIu/ml (0.300-4.500)
--- NOTE | 2024-11-30 19:55 | XRay Report ---
Chest radiograph, one view History: Stroke alert Comparison: 11/09/2024 Findings: Single AP view of the chest performed. A subtle area of opacity at the left lower lung is new from prior. No pleural effusion. No pneumothorax. The cardiomediastinal silhouette is within normal limits. Normal pulmonary vascularity. No evidence for lymphadenopathy. No visualized bony or soft tissue abnormality. Impression: Small area of opacity of the left lower lung is new, concerning for infection or aspiration versus atelectasis Electronically signed by Ruslan Velasco 11-30-2024 7:55 PM
[2024-11-30 20:30] LABS: Appearance Urine Clear (Clear); Bacteria Urine Automated None Seen (None Seen); Cast Urine Automated 0-2 /lpf (0-2); Epithelial Cell Urine Auto 0-2 /hpf (0-2); Glucose Urine UA Negative (Negative); WBC Urine Automated 0-5 /hpf (0-5)
--- NOTE | 2024-11-30 21:16 | History & Physical Report ---
Date of Service November 30, 2024 Assessment & Plan (1) Stroke-like symptoms: Plan: Assessment and plan below following discussion of case with ED provider and reviewing patient history/pertinent normal/abnormal diagnostic test results. Strokelike symptoms Presenting as left sided numbness/weakness CVA versus MS flareup versus complicated migraine Patient off maintenance medications last 2 months in preparation for rituximab. OBS Admit to med/tele Neurochecks Neurology consult RE strokelike symptoms (ED provider already in touch with [facility] stroke specialist.) Specialist recommends MRI brain and neurology consultation in AM. Aspirin for stroke prevention until stroke ruled out MRI cervical spine in addition to MRI brain given history MS DVT prophylaxis with Lovenox Full code Text document was generated using [email or web address] voice recognition software. It may contain grammatical or spelling errors. Kindly contact undersigned for clarification of any documentation item in question. History of Present Illness Chief Complaint: Left-sided weakness Primary Care Provider: Jhon Hoang MD History obtained from patient, family, and records. Medical history significant for multiple sclerosis, migraine, anxiety disorder. [place] [facility] [place] 2023 for MS flare presenting as right-sided weakness. Patient transferred from [facility] with MRI brain findings showing concern for subarachnoid bleed. Repeat CT scan done at [facility] did not show bleed which put SAH finding on MRI in the. Patient weakness improved with steroid course. Patient Kesimpta for MS on hold last 2 months in preparation for rituximab therapy. Patient achy and anxious from Kesimpta medication. Neurologist recommended outpatient brain and cervical MRIs with and without contrast prior to starting rituximab Rx as per patient. Yesterday morning, patient woke up with left numbness weakness of the lower face which later involved the left side of the body. Achy headache symptoms. Denies chest pain, SOB. No unusual neck pain or recent history of trauma. No recent tick bites. Persistent symptoms at work today along with feeling crappy. Patient consulted ER for evaluation. 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 Allergy/AdvReac Type Severity Reaction Status Date / Time banana Allergy Severe Swelling Verified 11/09/24 18:33 of Lip/Tongue/Throat cat dander Allergy Severe Difficulty Verified 11/09/24 18:33 Breathing dog dander Allergy Severe Difficulty Verified 11/09/24 18:33 Breathing kiwi Allergy Severe TONGUE AND Verified 11/09/24 18:33 THROAT SWELL latex Allergy Severe Anaphylaxis Verified 11/09/24 18:33 pineapple Allergy Severe Swelling Verified 11/09/24 18:33 of Lip/Tongue/Throat pollen extracts Allergy Intermediate SNEEZING, Verified 11/09/24 18:33 WATER EYES, ITCHING Home Medications Medication Instructions Recorded Confirmed Type cholecalciferol (vitamin D3) 125 10,000 unit PO DAILY 08/15/20 11/30/24 History mcg (5,000 unit) tablet (Vitamin D3) citalopram 10 mg tablet 20 mg PO QAM 11/24/23 11/30/24 History lorazepam 0.5 mg tablet 0.5 - 1 mg PO HS PRN Anxiety 11/09/24 11/30/24 History nortriptyline 10 mg capsule 20 mg PO HS 11/09/24 11/30/24 History ofatumumab 20 mg/0.4 mL 0 mg subcut .[id number] 11/09/24 11/30/24 History subcutaneous pen injector (Kesimpta Pen) promethazine 25 mg tablet 25 mg PO Q6H PRN NAUSEA/VOMITING 11/09/24 11/30/24 History Past Med/Surg History Problem List (Updated 11/30/24 @ 23:05 by Jose D Zuleta MD) Stroke-like symptoms (Acute) Multiple sclerosis (Acute) Acute left-sided weakness (Acute) Headache Right sided weakness (Acute) Menorrhagia due to intrauterine device (IUD) state (normal spontaneous vaginal delivery) Meconium in amniotic fluid with 37 weeks completed gestation with 36 completed weeks gestation Uterine contractions GBS carrier size inconsistent with dates Hemorrhoids (Acute) Vitamin D deficiency Encounter for anatomic survey Encounter for supervision of normal in multigravida, antepartum Medical History Asthma Multiple sclerosis Mild cervical dysplasia Condyloma acuminatum labor in third trimester Abdominal contusion Surgical History H/O wisdom tooth extraction (06/29/12) S/P tonsillectomy and adenoidectomy S/P wrist surgery deviated ulna reduction Family History Grandmother (Paternal) Breast cancer Diabetes Hypertension Grandfather (Paternal) Diabetes Hypertension Mother Hypothyroidism Social History Smoking Status: Never smoker Second Hand Exposure: No; Do You Dip or Chew Tobacco: No; Hx Alcohol Use: No Hx Substance Use: No Preferred Language: Salvadorean Communication Ability: Effective 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 Beliefs That Will Affect Care: None marital status: marital status details: Cody (32) [phone] Current Living Situation: Family Current Living Situation Comment: and daughter current occupational status: employed 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 @ [employer] Feels Safe at Home: Yes Assistive Devices: None Review of Systems Review of Systems: As per HPI, all other systems reviewed and negative Physical Exam Physical Exam: GENERAL: Comfortable, obese, no respiratory distress SKIN: Normal color, warm HEENT: [place] palpebral conjunctivae, no ptosis, moist buccal mucosa NECK : Supple, no tenderness CHEST : CTA, no tenderness HEART : RRR, no obvious murmurs ABDOMEN: Some distention, nontender EXTREMITIES : No LE swelling/tenderness, palpable pulses, no other conspicuous deformities noted NEUROLOGIC : Coherent, no facial asymmetry, MMTs BUE 4/5, BLE 4/5 (left slightly weaker than the right), gait and stance not assessed Results & Data Results & Data Vital Signs (Past 12 Hours) Vital Signs Temp Pulse Pulse Resp BP BP Pulse Ox 11/30/24 19:36 88 24 138/79 100 11/30/24 19:09 81 11/30/24 19:03 88 19 129/84 100 11/30/24 18:54 81 20 139/84 100 11/30/24 18:54 100 11/30/24 18:37 36.6 C 90 18 138/90 92 O2 Del Method 11/30/24 19:36 Room Air 11/30/24 19:09 11/30/24 19:03 Room Air 11/30/24 18:54 Room Air 11/30/24 18:54 Room Air 11/30/24 18:37 Room Air Laboratory Results Laboratory Results WBC 10.66 K/ul (4.8-10.8) 11/30/24 19:00 RBC 4.47 M/uL (4.20-5.40) 11/30/24 19:00 Hgb 13.6 g/dl (12.0-16.0) 11/30/24 19:00 POC Hgb 13.6 g/dl (12.0-16.0) 11/30/24 19:05 Hct 39.7 % (37.0-47.0) 11/30/24 19:00 POC Hct 40 % (37-47) 11/30/24 19:05 MCV 88.8 fL (80.0-100.0) 11/30/24 19:00 MCH 30.4 pg (25.0-34.0) 11/30/24 19:00 MCHC 34.3 g/dL (32.0-36.0) 11/30/24 19:00 RDW Std Deviation 40.2 fL (36.4-46.3) 11/30/24 19:00 RDW Coeff of Marina 12.5 % (11.5-14.5) 11/30/24 19:00 Plt Count 369 K/uL (130-400) 11/30/24 19:00 MPV 8.4 fL (9.4-12.4) L 11/30/24 19:00 PT 10.2 Seconds (9.0-12.0) 11/30/24 19:00 INR 0.9 (0.9-1.1) 11/30/24 19:00 APTT 27 Seconds (21-31) 11/30/24 19:00 PTT Ratio 1.0 11/30/24 19:00 POC Sodium 140 mmol/L (135-144) 11/30/24 19:05 Sodium 138 mmol/L (136-145) 11/30/24 19:00 POC Potassium 3.6 mmol/L (3.3-5.0) 11/30/24 19:05 Potassium 3.7 mmol/L (3.5-5.1) 11/30/24 19:00 POC Chloride 101 mmol/L (101-112) 11/30/24 19:05 Chloride 102 mmol/L (98-107) 11/30/24 19:00 Carbon Dioxide 29 mmol/L (21-32) 11/30/24 19:00 POC Total CO2 25 mmol/L (24-31) 11/30/24 19:05 Anion Gap 7 (3-11) 11/30/24 19:00 POC Anion Gap 18.0 mmol/L (16-25) 11/30/24 19:05 POC BUN 16 mg/dl (7-18) 11/30/24 19:05 BUN 17 mg/dl (6-23) 11/30/24 19:00 Creatinine 0.80 mg/dl (0.6-1.2) 11/30/24 19:00 POC Creatinine 0.9 mg/dl (0.6-1.3) 11/30/24 19:05 Est Cr Clr Drug Dosing 107.3 ml/min 11/30/24 19:00 eGFR 100.96 11/30/24 19:00 BUN/Creatinine Ratio 21.3 (10-20) H 11/30/24 19:00 Glucose 90 mg/dl (70-99(Fasting)) 11/30/24 19:00 POC Glucose (other) 90 mg/dl (70-99) 11/30/24 19:05 Calcium 10.1 mg/dl (8.6-10.3) 11/30/24 19:00 POC Ioniz Calcium Glenn 1.26 mmol/l (1.12-1.32) 11/30/24 19:05 Magnesium 2.3 mg/dl (1.7-2.4) 11/30/24 19:00 Total Bilirubin 0.5 mg/dl (0.2-1.0) 11/30/24 19:00 AST 18 U/L (13-39) 11/30/24 19:00 ALT 21 U/L (7-52) 11/30/24 19:00 Alkaline Phosphatase 50 U/L (34-104) 11/30/24 19:00 Total Protein 7.7 gm/dl (6.0-8.3) 11/30/24 19:00 Albumin 4.7 gm/dl (3.4-5.0) 11/30/24 19:00 Globulin 3.0 gm/dl (2.5-4.0) 11/30/24 19:00 Albumin/Globulin Ratio 1.6 (0.9-2) 11/30/24 19:00 TSH 0.955 uIu/ml (0.300-4.500) 11/30/24 19:00 HCG, Qual Negative (Negative) 11/30/24 19:00 Urine Color Yellow 11/30/24 20:15 Urine Appearance Clear (Clear) 11/30/24 20:15 Urine pH 6.0 (4.5-7.5) 11/30/24 20:15 Ur Specific [place] > 1.045 (1.000-1.030) H 11/30/24 20:15 Urine Protein Negative (Negative) 11/30/24 20:15 Urine Glucose (UA) Negative (Negative) 11/30/24 20:15 Urine Ketones Negative (Negative) 11/30/24 20:15 Urine Blood Trace (Negative) H 11/30/24 20:15 Urine Nitrite Negative (Negative) 11/30/24 20:15 Urine Bilirubin Negative (Negative) 11/30/24 20:15 Urine Urobilinogen Negative (Negative) 11/30/24 20:15 Ur Leukocyte Esterase Negative (Negative) 11/30/24 20:15 Urine WBC (Auto) 0-5 /hpf (0-5) 11/30/24 20:15 Urine RBC (Auto) 3-5 /hpf (0-2) H 11/30/24 20:15 U Hyaline Cast (Auto) 0-2 /lpf (0-2) 11/30/24 20:15 U Epithel Cells (Auto) 0-2 /hpf (0-2) 11/30/24 20:15 Urine Bacteria (Auto) None Seen (None Seen) 11/30/24 20:15 Urine Comment 11/30/24 20:15 Impressions Chest X-Ray 11/30/24 18:59 Chest radiograph, one view History: Stroke alert Comparison: 11/09/2024 Findings: Single AP view of the chest performed. A subtle area of opacity at the left lower lung is new from prior. No pleural effusion. No pneumothorax. The cardiomediastinal silhouette is within normal limits. Normal pulmonary vascularity. No evidence for lymphadenopathy. No visualized bony or soft tissue abnormality. Impression: Small area of opacity of the left lower lung is new, concerning for infection or aspiration versus atelectasis Electronically signed by Ruslan Velasco 11-30-2024 7:[address] 11/30/24 19:[address] without contrast CT angiogram of the neck CT angiogram of the brain with contrast Provided History: Neuro deficit Comparison: None Technique: HEAD CT: Using multidetector thin collimation helical acquisition technique, axial, coronal and sagittal CT images from the skull base to the vertex were obtained without intravenous contrast. HEAD and NECK CTA: During rapid bolus intravenous injection of nonionic contrast material, axial images were obtained using thin collimation multidetector helical technique from the base of the neck through the of vertex of the head. This CT angiogram data was reconstructed at thin intervals with mild overlap. 3D reconstructions were obtained. The axial source images, multiplanar reformations, 3D reconstructions in both maximum intensity projection display and volume rendered models were reviewed. Dose reduction techniques were achieved by using automatic exposure control and/or adjustment of mA and/or kV according to patient size and/or use of iterative reconstruction technique. Findings: Head CT: There is no intracranial hemorrhage, mass effect, or midline shift. Silvestre/white matter differentiation in both cerebral hemispheres is preserved. Ventricles are proportionate to the cerebral sulci. Head CTA demonstrates no aneurysm or stenosis of the major intracranial arteries. Neck CTA demonstrates no stenosis of the major cervical arteries. The origins of the great vessels from the aortic arch are patent. No mass is noted within the visualized portions of the cervical soft tissues or lung apices. Impression: 1. Head CTA demonstrates no aneurysm or stenosis of the major intracranial arteries, 2. Neck CTA demonstrates no stenosis of the major cervical arteries. 3. No intracranial hemorrhage on the noncontrast head CT. Electronically signed by Ruslan Velasco 11-30-2024 7:34 PM Head CTA 11/30/24 19:[address] without contrast CT angiogram of the neck CT angiogram of the brain with contrast Provided History: Neuro deficit Comparison: None Technique: HEAD CT: Using multidetector thin collimation helical acquisition technique, axial, coronal and sagittal CT images from the skull base to the vertex were obtained without intravenous contrast. HEAD and NECK CTA: During rapid bolus intravenous injection of nonionic contrast material, axial images were obtained using thin collimation multidetector helical technique from the base of the neck through the of vertex of the head. This CT angiogram data was reconstructed at thin intervals with mild overlap. 3D reconstructions were obtained. The axial source images, multiplanar reformations, 3D reconstructions in both maximum intensity projection display and volume rendered models were reviewed. Dose reduction techniques were achieved by using automatic exposure control and/or adjustment of mA and/or kV according to patient size and/or use of iterative reconstruction technique. Findings: Head CT: There is no intracranial hemorrhage, mass effect, or midline shift. Silvestre/white matter differentiation in both cerebral hemispheres is preserved. Ventricles are proportionate to the cerebral sulci. Head CTA demonstrates no aneurysm or stenosis of the major intracranial arteries. Neck CTA demonstrates no stenosis of the major cervical arteries. The origins of the great vessels from the aortic arch are patent. No mass is noted within the visualized portions of the cervical soft tissues or lung apices. Impression: 1. Head CTA demonstrates no aneurysm or stenosis of the major intracranial arteries, 2. Neck CTA demonstrates no stenosis of the major cervical arteries. 3. No intracranial hemorrhage on the noncontrast head CT. Electronically signed by Ruslan Velasco 11-30-2024 7:34 PM Neck CTA 11/30/24 19:[address] without contrast CT angiogram of the neck CT angiogram of the brain with contrast Provided History: Neuro deficit Comparison: None Technique: HEAD CT: Using multidetector thin collimation helical acquisition technique, axial, coronal and sagittal CT images from the skull base to the vertex were obtained without intravenous contrast. HEAD and NECK CTA: During rapid bolus intravenous injection of nonionic contrast material, axial images were obtained using thin collimation multidetector helical technique from the base of the neck through the of vertex of the head. This CT angiogram data was reconstructed at thin intervals with mild overlap. 3D reconstructions were obtained. The axial source images, multiplanar reformations, 3D reconstructions in both maximum intensity projection display and volume rendered models were reviewed. Dose reduction techniques were achieved by using automatic exposure control and/or adjustment of mA and/or kV according to patient size and/or use of iterative reconstruction technique. Findings: Head CT: There is no intracranial hemorrhage, mass effect, or midline shift. Silvestre/white matter differentiation in both cerebral hemispheres is preserved. Ventricles are proportionate to the cerebral sulci. Head CTA demonstrates no aneurysm or stenosis of the major intracranial arteries. Neck CTA demonstrates no stenosis of the major cervical arteries. The origins of the great vessels from the aortic arch are patent. No mass is noted within the visualized portions of the cervical soft tissues or lung apices. Impression: 1. Head CTA demonstrates no aneurysm or stenosis of the major intracranial arteries, 2. Neck CTA demonstrates no stenosis of the major cervical arteries. 3. No intracranial hemorrhage on the noncontrast head CT. Electronically signed by Ruslan Velasco 11-30-2024 7:34 PM Diagnostic Findings EKG as per my interpretation :Rate 80, NSR, normal axis, no ischemia, PVCs
[2024-11-30] MEDS ORDERED: PHARMACIST DISCHARGE MED REC CONSULT PRN (21:37)
[2024-11-30] MEDS ORDERED: LORazepam 0.5 MG TAB PO PRN (21:39)
[2024-11-30] MEDS ORDERED: PROMETHAZINE 6.25 MG/50.25 ML BAG IV PRN (21:39)
[2024-11-30] MEDS ORDERED: ACETAMINOPHEN 325 MG TAB PO PRN (21:39)
[2024-11-30] MEDS: ASPIRIN 81 MG ECTAB PO STA (22:34)
[2024-11-30] MEDS: NSS + 20MEQ KCL 20 MEQ/1,000 ML BAG IV ONE (22:34)
[2024-11-30] MEDS: LACTATED RINGER'S 1,000 ML IV ONE (23:49)
[2024-11-30] MEDS: NORTRIPTYLINE HCL 10 MG CAP PO SCH (23:49)
[2024-11-30] MEDS: POTASSIUM CHLORIDE CRTAB 20 MEQ TABCR PO STA (23:49)
[2024-12-01 06:30] LABS: Hematocrit (blood only) 37.5 % (37.0-47.0); Hemoglobin 12.7 g/dl (12.0-16.0); Immature Granulocytes # (auto) 0.03 K/uL (0.01-0.20); Immature Granulocytes % (auto) 0.4 %; Mean Corpuscular Hemoglobin 30.4 pg (25.0-34.0); Mean Corpuscular Volume 89.7 fL (80.0-100.0); Platelet Count 311 K/uL (130-400); RDW Standard Deviation 40.4 fL (36.4-46.3); Red Blood Count 4.18 M/uL (4.20-5.40); White Blood Count 8.43 K/ul (4.8-10.8)
[2024-12-01 06:48] LABS: Anion Gap 5.0 (3-11); Blood Urea Nitrogen 17.0 mg/dl (6-23); Calcium 9.1 mg/dl (8.6-10.3); Carbon Dioxide 26.0 mmol/L (21-32); Chloride 107.0 mmol/L (98-107); Cholesterol 135.0 mg/dl (0-200); Creatinine Clr Calc Pharmacy 125.6 ml/min; Glucose 86.0 mg/dl (70-99(Fasting)); HDL Cholesterol 35.0 mg/dl; Potassium 4.1 mmol/L (3.5-5.1); Sodium 138.0 mmol/L (136-145); Triglycerides 96.0 mg/dl (0-150)
[2024-12-01] MEDS: ASPIRIN 81 MG ECTAB PO SCH (08:00)
[2024-12-01] MEDS: ENOXAPARIN INJ 40 MG/0.4 ML SYR SQ SCH (08:00)
[2024-12-01] MEDS: CITALOPRAM 20 MG TAB PO SCH (08:00)
[2024-12-01 08:01] VITALS: RESP 18
[2024-12-01] MEDS ORDERED: ENOXAPARIN INJ 40 MG/0.4 ML SYR SQ SCH (09:00)
[2024-12-01] MEDS: GADOBUTROL 65ML VIAL IV ONE (10:17)
--- NOTE | 2024-12-01 10:43 | Magnetic Resonance Report ---
MRI OF THE BRAIN COMBO CLINICAL HISTORY: Headache. Left-sided weakness. Reported history of multiple sclerosis. COMPARISON STUDY: MRI of the brain dated 11/24/2023. CT of the brain dated 11/30/2024. TECHNIQUE: MRI of the brain was performed utilizing various T1 and T2-weighted sequences in the axial , sagittal, and coronal planes. Contrast-enhanced sequences were acquired following the administratio n of 10 cc of Gadavist. The examination was performed using the multiple sclerosis protocol. FINDINGS: Brain parenchyma: Scattered foci of T2 signal are again seen within the subcortical and periventricul ar white matter as well as within the corpus callosum. This is consistent with reported history of mu ltiple sclerosis. There is no associated abnormal contrast enhancement. This is similar in appearance to the 11/24/2023 examination. There is no hemorrhage or mass effect. There is no restricted diffusio n to suggest acute ischemia. No enhancing mass lesion is identified on the postcontrast images. Silvestre- white matter differentiation is preserved. No extra-axial fluid collection is seen. The cerebellar to nsils are normal in configuration. Ventricles, sulci, and cisterns: Normal in configuration. Pituitary and sella: Unremarkable. Intracranial vasculature: Normal flow voids are maintained at the skull base. Orbits: The bony orbits are grossly intact. Orbital contents are normal in appearance. Sinuses and mastoids: Clear. Calvarium: Unremarkable. Cervical cord: There are 2 foci of signal abnormality within the cervical cord seen at C2 and C3, lik mario representing multiple sclerosis plaques. These are similar to previous. IMPRESSION: 1. No acute intracranial abnormality. 2. Again seen are scattered foci of T2 signal abnormality within the white matter, the corpus callosu m, and the cervical cord. These are similar in appearance to the 11/24/2023 examination and consistent with the known history of multiple sclerosis. 3. No abnormal postcontrast enhancement is seen to suggest active demyelination. ACT 112: Negative or not required by law. Electronically signed by: Jose D Karimi M.D. 12/01/2024 10:40 AM
--- NOTE | 2024-12-01 11:19 | Discharge Summary ---
Discharge Summary Date of Service December 01, 2024 Principal Dx & Hospital Course #1 = Principal Diagnosis (1) Exacerbation of multiple sclerosis: Notes For Next Care Provider Patient 29-year-old female with known history of multiple sclerosis, presented to the emergency room with complaints of right sided facial numbness. Evaluation emergency room was negative for large vessel occlusion or acute hemorrhagic stroke. Due to her symptoms referred for further evaluation. Patient was monitored in the hospital. There is no significant arrhythmias. Patient's perioral numbness and right cheek numbness persisted but not really exacerbate. Patient underwent MRI of the brain. It was negative for acute cerebral infarction. Did have findings consistent with multiple sclerosis. Discussed these findings with the patient. Her symptomatology is much more consistent with her previous exacerbations of multiple sclerosis. Patient has done an oral burst of methylprednisolone in the past. This has been effective for her. She really would like to try and do this again. Patient will be given 1 dose of IV methylprednisolone here in the hospital. Anticipate discharging her home to complete a 5-day course of steroids. Patient has an appointment with her neurologist on Monday for possible first rituximab injection for ongoing treatment of her MS. Of note patient has been off her previous MS medications for the last 2 months in preparation for the rituximab. This most likely explains the reason why her symptoms exacerbated. Medication Changes From Visit Methylprednisolone pulsed dose Admission HPI Per Admitting Provider History obtained from patient, family, and records. Medical history significant for multiple sclerosis, migraine, anxiety disorder. Last [facility] confinement November 2023 for MS flare presenting as right-sided weakness. Patient transferred from [facility] with MRI brain findings showing concern for subarachnoid bleed. Repeat CT scan done at [facility] did not show bleed which put SAH finding on MRI in the. Patient weakness improved with steroid course. Patient Kesimpta for MS on hold last 2 months in preparation for rituximab therapy. Patient achy and anxious from Kesimpta medication. Neurologist recommended outpatient brain and cervical MRIs with and without contrast prior to starting rituximab Rx as per patient. Yesterday morning, patient woke up with left numbness weakness of the lower face which later involved the left side of the body. Achy headache symptoms. Denies chest pain, SOB. No unusual neck pain or recent history of trauma. No recent tick bites. Persistent symptoms at work today along with feeling crappy. Patient consulted ER for evaluation. 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 Lungs: Clear to auscultation, decreased, no wheezes rales or rhonchi CV: S1-S2, regular Abdomen: Soft, nontender, nondistended Extremities: No significant edema Neuro: Speech is clear, no facial droop, some mild decrease sensation/paresthesia of the right cheek, ear and right anterior neck Psych: Cooperative, normal mood Updated Medication List Medication Instructions Recorded Confirmed Type cholecalciferol (vitamin D3) 125 10,000 unit PO DAILY 08/15/20 11/30/24 History mcg (5,000 unit) tablet (Vitamin D3) citalopram 10 mg tablet 20 mg PO QAM 11/24/23 11/30/24 History lorazepam 0.5 mg tablet 0.5 - 1 mg PO HS PRN Anxiety 11/09/24 11/30/24 History nortriptyline 10 mg capsule 20 mg PO HS 11/09/24 11/30/24 History ofatumumab 20 mg/0.4 mL 0 mg subcut .[id number] 11/09/24 11/30/24 History subcutaneous pen injector (Kesimpta Pen) promethazine 25 mg tablet 25 mg PO Q6H PRN NAUSEA/VOMITING 11/09/24 11/30/24 History famotidine 20 mg tablet (Pepcid) 20 mg PO BID 14 days #28 tabs 12/01/24 Rx methylprednisolone 32 mg tablet 992 mg (31 x 32 mg) PO DAILY #124 12/01/24 Rx tabs Hospital Stay Data Consultations 11/30/24 20:13 ED Decision to Admit Stat Diagnostic Imagining Performed 11/30/24 19:10 CT Brain [CT head/brain wo con] Stat CT angio head w con Stat CT angio neck with con Stat 12/01/24 21:37 MR brain wo/w con Routine 12/01/24 21:50 MR cervical spine wo/w con Routine Reviewed imaging, laboratory and diagnostic studies. Pertinent findings as below. CBC stable Electrolytes stable Creatinine 0.70 Lipid panel stable TSH 0.95 MRI of the brain negative for ischemiaUrinalysis negative for signs of infection, Abnormal T2 signals consistent with MS similar in appearance to previous MRIs. No signs of active demyelination. Pending Results Patient Have Any Pending Studies at Discharge: No Discharge Instructions Given to Patient (Per Discharging Provider) Follow-up with your neurologist as scheduled Total Time Total Time Spent Total Time Spent (In Minutes): 31
[2024-12-01 11:33] VITALS: BP 121/80; TEMP 98.1
[2024-12-01] MEDS: methylPREDNISolone 1,000 MG in NSS 250 ML IV ONE (11:45)
[2024-12-01 11:59] VITALS: PULSE 90
--- NOTE | 2024-12-01 12:44 | Electrocardiogram Report ---
Test Reason : Blood Pressure : */* mmHG Vent. Rate : 81 BPM Atrial Rate : 81 BPM P-R Int : 204 ms QRS Dur : 76 ms QT Int : 384 ms P-R-T Axes : 24 23 23 degrees QTcB Int : 446 ms Sinus rhythm with frequent Premature ventricular complexes Poor R wave progression, consider anterior HI vs. lead placement vs. LVH Abnormal ECG When compared with ECG of 09-Nov-2024 17:31, Premature ventricular complexes are now Present Criteria for Inferior infarct are no longer Present Nonspecific T wave abnormality has replaced inverted T waves in Inferior leads Nonspecific T wave abnormality now evident in Anterior leads Confirmed by Ayush Barnett ([id number]) on 12/01/2024 12:44:27 PM Referred By: REFERRED SELF Confirmed By: Ayush Barnett
--- NOTE | 2024-12-01 14:39 | Magnetic Resonance Report ---
MRI OF THE CERVICAL SPINE COMBO CLINICAL HISTORY: Multiple sclerosis. COMPARISON STUDY: MRI of the cervical spine dated 11/24/2023. TECHNIQUE: MRI of the cervical spine is performed utilizing various T1 and T2-weighted sequences in t he axial and sagittal planes. Contrast enhanced sequences were acquired following the administration of 10 cc of Gadavist. FINDINGS: Cervical spine: Vertebral body height and alignment are maintained throughout the cervical spine. Nor mal marrow signal intensity is preserved throughout the visualized bony structures. The atlantodental articulation is maintained. The spinous processes appear intact. No destructive bony lesion is seen. Intervertebral discs: There is mild disc desiccation. The disc spaces are preserved. Spinal cord: The cervical cord is normal in morphology. T2 hyperintense plaques are again seen throug hout the cervical cord. A plaque within the right aspect of the cord at C2 is seen on sagittal image #7 and measures 8 mm. A 7 mm plaque is seen posteriorly at C3 on sagittal image #8 additional smaller plaques are seen on the right at C4 on axial 2D MERGE image #17 and within the right mastoid cord at C6 on axial image #22. No abnormal postcontrast enhancement is clearly seen to indicate active demye lination. C2-C3: Unremarkable. C3-C4: Unremarkable. C4-C5: Mild facet arthropathy is of no consequence. The central canal and neural foramina are patent. C5-C6: Unremarkable. C6-C7: Unremarkable. C7-T1: Unremarkable. Soft tissues: The prevertebral and paraspinous soft tissues are within normal limits. Brain parenchyma: The imaged brain parenchyma at the skull base shows no acute abnormality. IMPRESSION: 1. The cervical cord is normal in morphology. Numerous T2 hyperintense plaques are similar in appeara nce to the 11/24/2023 examination and consistent with the known history of multiple sclerosis. 2. There is no abnormal postcontrast enhancement clearly seen to suggest active demyelination. 3. There is no disc herniation, central canal stenosis, or neural foraminal narrowing seen throughout the cervical spine. 4. No destructive bony process is seen. Electronically signed by: Jose D Karimi M.D. 12/01/2024 2:37 PM
== END 2024-12-01 13:25 | disposition home or self-care (01) ==
LOC: 2N 18:34 → ED 18:34 → 2N 12-01 00:20